=== PATIENT | female | born 1945 | race Caucasian/White ===

== ENCOUNTER 2022-07-18 10:53 | Inpatient (IN) | payer MEDICARE, SELFPAY ==
[2022-07-18 11:32] VITALS: BP 112/79; PULSE 96; RESP 16; TEMP 35.9; O2SAT 95
[2022-07-18 16:10] VITALS: BP 100/71; PULSE 98; RESP 18; TEMP 36.1; O2SAT 94
[2022-07-18 17:08] LABS: Basophils Absolute Auto 0.01 K/uL (0.00-0.30); Basophils Percent Auto 0.1 % (0.0-3.0); Hematocrit 45.7 % (33.0-51.0); Hemoglobin* 15.1 gm/dL (12.0-16.0); Immature Granulocytes Abs Auto 0.01 K/uL (0.00-0.30); Immature Granulocytes Pct Auto 0.1 %; Lymphocytes Percent Auto 9.4 % (20-44); Mean Corpuscular HGB Conc 33 gm/dL (32-36); Mean Corpuscular Hemoglobin 35 pg (26-34); Mean Corpuscular Volume 105 fL (80-100); Monocytes Percent Auto 6.9 % (0.0-11.0); Neutrophils Percent Auto 83.5 % (42.0-72.0); Platelet Count* 265 K/uL (140-440); RDW Coefficient of Variation % 12.2 % (11.5-15.5); Red Blood Count 4.37 m/uL (4.00-5.20); White Blood Count* 8.53 K/uL (4.50-11.00)
[2022-07-18 17:13] LABS: Appearance Urine Slightly Cloudy (Clear); Bilirubin Urine 3+ (Negative); Blood Urine 3+ (Negative); Color Urine Red (Yellow); Glucose Urine Negative (Negative); Ketones Urine 2+ (Negative); Leukocyte Esterase Urine Negative (Negative); Nitrite Urine Positive (Negative); Protein Urine 1+ (Negative); Specific Gravity Urine >= 1.030 (1.000-1.030); pH Urine 5.5 (5.0-8.5)
[2022-07-18 17:15] LABS: Slide Review Reflex No
[2022-07-18 17:22] LABS: Chloride* 101 mmol/L (96-114); Sodium* 139 mmol/L (135-149)
[2022-07-18 17:25] LABS: Amylase* 70 U/L (18-89); Creatinine* 0.5 mg/dL (0.5-1.5); Estimated Glomerular Filt Rate 98 ml/min
[2022-07-18 17:26] LABS: Albumin* 4.6 g/dL (3.3-5.0); Blood Urea Nitrogen* 12 mg/dL (7-30); Carbon Dioxide* 27 mmol/L (20-32); Glucose* 151 mg/dL (60-115)
--- NOTE | 2022-07-18 17:26 | ED.ABDPAIN ---
HPI - Abdominal Pain General Date Seen: 07/18/22 Chief Complaint: Abdominal Pain Stated Complaint: Abdominal pain, weakness Time Seen by Provider: 07/18/22 16:27 Source: patient and family Mode of arrival: ambulatory Limitations: no limitations History of Present Illness HPI narrative: 77-year-old female presents here for evaluation of abdominal pain which she has had since last night, she describes a throughout her entire abdomen, worse when she moves takes a deep breath in or lays on her side she also says it was bad when she was walking, she has been waiting in the emergency room for 6 hours, she has not eaten anything so can not tell me if eating makes it better or worse. She denies a fevers chills, she does have a remote history of constipation associated with this. But no real significant history of previous abdominal operations she tells me. She is not taking anything for the pain at all no Tylenol ibuprofen or anything else,. Denies a history of black stools blood in her stools vomiting up blood or any other issues associated with this accompanied here by her . She is in the [facility] system, we do not have any other information on her. She tells me she drinks approximately 10 glasses of wine per day, she has not drank since yesterday, this is been chronic according to her hu Pertinent past history: none Onset (ago): day(s) Pain Consistency: constant Location: diffuse, epigastric and periumbilical Severity: severe Quality: stabbing Radiation: none Migration to: no migration Exacerbating factors: movement Relieving factors: rest Associated symptoms: denies other symptoms Related Data Patient : No Home Medications Medication Instructions Recorded Confirmed Unobtainable 07/18/22 07/18/22 Allergies Allergy/AdvReac Type Severity Reaction Status Date / Time No Known Drug Allergies Allergy Verified 07/18/22 11:38 Review of Systems Status of ROS Reports: 10 or more systems reviewed and unremarkable except as noted in History and below PFSH PFS Social History Smoking Status: Never smoker Second hand tobacco smoke exposure: No How often do you have a drink containing alcohol: never How often do you have six or more drinks on one occasion: Never AUDIT-C Alcohol total score: 0 Non-prescribed substance use: denies use service: No Exam Narrative: Exam Narrative: Patient is seen in room 3 she is in no apparent distress, able to lay down for me sit up, she complains of pain throughout her abdomen, any sort of palpation list is pain but I am able to press this test scope down a little further, Pupils are equal round reactive to light there is no scleral icterus redness, she is very thin,, do not see any evidence of any paleness of her conjunctiva. Oropharynx is normal, her neck is supple, chest is clear bilaterally with no wheezing crackles noted heart sounds are normal no clicks murmurs or gallops her abdomen is as above. No organomegaly, no CVA tenderness, she moves all extremities independently and well. Const: Vital Signs, click to edit/add: Vital Signs - 24 hr 07/18/22 11:32 07/18/22 16:10 Temperature 96.7 F L 97 F L Pulse Rate [Pulse Oximeter] 96 98 Respiratory Rate 16 18 Blood Pressure [Ri ght Upper Arm] 112/79 100/71 Pulse Oximetry 95 94 Oxygen Delivery Me thod Room Air Room Air Documenting provider has reviewed patient's vital signs: yes Course Course Hospital Course: I spoke to the hospitalist in general surgery, with the diagnosis of small-bowel obstruction, I recommended admission which they are in agreement with, Vital Signs Vital signs: Initial Vital Signs Temperature 96.7 F L 07/18/22 11:32 Temperature Source Temporal Artery Scan 07/18/22 11:32 Pulse Rate 96 07/18/22 11:32 Pulse Rhythm 07/18/22 11:32 Respiratory Rate 16 07/18/22 11:32 Blood Pressure 112/79 07/18/22 11:32 Blood Pressure Mean 90 07/18/22 11:32 Blood Pressure Position Sitting 07/18/22 11:32 Pulse Oximetry 95 07/18/22 11:32 Oxygen Delivery Method 07/18/22 11:32 Vital Signs Temperature 96.7 F L 07/18/22 11:32 Pulse Rate 96 07/18/22 11:32 Respiratory Rate 16 07/18/22 11:32 Blood Pressure 112/79 07/18/22 11:32 Pulse Oximetry 95 07/18/22 11:32 Oxygen Delivery Method 07/18/22 11:32 Temperature 97 F L 07/18/22 16:10 Pulse Rate 98 07/18/22 16:10 Respiratory Rate 18 07/18/22 16:10 Blood Pressure 100/71 07/18/22 16:10 Pulse Oximetry 94 07/18/22 16:10 Oxygen Delivery Method 07/18/22 16:10 MDM - Abdominal Pain MDM Narrative Medical decision making narrative: During the evaluation of this patient I considered multiple differential diagnosis including life-threatening differentials which are appendicitis, aortic aneurysm, mesenteric ischemia, bowel perforation, ectopic , volvulus and bowel obstruction, other differential diagnosis include but are not limited to inflammatory bowel disease, cholecystitis, pancreatitis, hepatitis, gastritis, GERD, diverticulitis, peptic ulcer disease, pyelonephritis/UTI, renal colic/stone, pelvic inflammatory disease, cervicitis, endometritis, intrauterine , dysfunctional uterine bleeding, ovarian cyst/torsion, spontaneous as well as other etiologies Differential Diagnosis Differential diagnosis: Likely abdominal pain Medical Records Attestation: I reviewed the patient's medical records. Lab Data Attestation: I reviewed the patient's lab results. Labs: Lab Results 07/18/22 07/18/22 07/18/22 Range/Units 16:42 16:51 17:00 WBC 8.53 (4.50-11.00) K/uL RBC 4.37 (4.00-5.20) m/uL Hgb 15.1 (12.0-16.0) gm/dL Hct 45.7 (33.0-51.0) % MCV 105 H (80-100) fL MCH 35 H (26-34) pg MCHC 33 (32-36) gm/dL RDW Coeff of Ramon 12.2 (11.5-15.5) % Plt Count 265 (140-440) K/uL Neut % (Auto) 83.5 H (42.0-72.0) % Lymph % (Auto) 9.4 L (20-44) % Mccreary % (Auto) 6.9 (0.0-11.0) % Eos % (Auto) 0.0 (0.0-7.0) % Baso % (Auto) 0.1 (0.0-3.0) % Neut # (Auto) 7.10 H (1.7-7.0) K/uL Lymph # (Auto) 0.80 L (0.90-2.90) K/uL Mccreary # (Auto) 0.60 (0.00-0.90) K/UL Eos # (Auto) 0.00 (0.00-0.50) K/uL Baso # (Auto) 0.01 (0.00-0.30) K/uL Sodium (135-149) mmol/L Potassium (3.6-5.1) mmol/L Chloride (96-114) mmol/L Carbon Dioxide (20-32) mmol/L BUN (7-30) mg/dL Creatinine (0.5-1.5) mg/dL Estimated GFR ml/min Glucose (60-115) mg/dL Calcium (8.4-10.6) mg/dL Total Bilirubin (0.1-1.5) mg/dL Direct Bilirubin (0.0-0.5) mg/dL AST (12-35) U/L ALT (4-35) U/L Alkaline Phosphatase (40-150) U/L Troponin I (0.01-0.04) ng/mL C-Reactive Protein (0.5-1.0) mg/dL Total Protein (6.0-8.3) g/dL Albumin (3.3-5.0) g/dL Amylase (18-89) U/L Lipase (23-300) U/L Urine Color Red A (Yellow) Urine Appearance Slightly Cloudy A (Clear) Urine pH 5.5 (5.0-8.5) Ur Specific Felicity >= 1.030 (1.000-1.030) Urine Protein 1+ A (Negative) Urine Glucose (UA) Negative (Negative) Urine Ketones 2+ A (Negative) Urine Blood 3+ A (Negative) Urine Nitrite Positive A (Negative) Urine Bilirubin 3+ A (Negative) Urine Urobilinogen 1.0 (0.2-1.0) Ur Leukocyte Esterase Negative (Negative) Urine RBC 2-5 A (0-2) Urine WBC 2-5 (0-5) Ur Squamous Epith Cells Moderate A (None-Few) Urine Bacteria Few A (None) Fine Granular Casts Moderate A (None) Ethyl Alcohol (0.01-0.03) % SARS-CoV-2 (PCR) Negative SARS-CoV-2 (Negative) Influenza Type A (PCR) Negative PCR FLU A (Negative) Influenza Type B (PCR) Negative PCR FLU B (Negative) RSV (PCR) Negative PCR RSV (Negative) 07/18/22 07/18/22 07/18/22 Range/Units 17:00 17:00 17:00 WBC (4.50-11.00) K/uL RBC (4.00-5.20) m/uL Hgb (12.0-16.0) gm/dL Hct (33.0-51.0) % MCV (80-100) fL MCH (26-34) pg MCHC (32-36) gm/dL RDW Coeff of Ramon (11.5-15.5) % Plt Count (140-440) K/uL Neut % (Auto) (42.0-72.0) % Lymph % (Auto) (20-44) % Mccreary % (Auto) (0.0-11.0) % Eos % (Auto) (0.0-7.0) % Baso % (Auto) (0.0-3.0) % Neut # (Auto) (1.7-7.0) K/uL Lymph # (Auto) (0.90-2.90) K/uL Mccreary # (Auto) (0.00-0.90) K/UL Eos # (Auto) (0.00-0.50) K/uL Baso # (Auto) (0.00-0.30) K/uL Sodium 139 (135-149) mmol/L Potassium 4.0 (3.6-5.1) mmol/L Chloride 101 (96-114) mmol/L Carbon Dioxide 27 (20-32) mmol/L BUN 12 (7-30) mg/dL Creatinine 0.5 (0.5-1.5) mg/dL Estimated GFR 98 ml/min Glucose 151 H (60-115) mg/dL Calcium 10.0 (8.4-10.6) mg/dL Total Bilirubin 1.1 (0.1-1.5) mg/dL Direct Bilirubin 0.4 (0.0-0.5) mg/dL AST 32 (12-35) U/L ALT 20 (4-35) U/L Alkaline Phosphatase 106 (40-150) U/L Troponin I < 0.01 L (0.01-0.04) ng/mL C-Reactive Protein 0.8 (0.5-1.0) mg/dL Total Protein 7.9 (6.0-8.3) g/dL Albumin 4.6 (3.3-5.0) g/dL Amylase 70 (18-89) U/L Lipase 37 (23-300) U/L Urine Color (Yellow) Urine Appearance (Clear) Urine pH (5.0-8.5) Ur Specific Felicity (1.000-1.030) Urine Protein (Negative) Urine Glucose (UA) (Negative) Urine Ketones (Negative) Urine Blood (Negative) Urine Nitrite (Negative) Urine Bilirubin (Negative) Urine Urobilinogen (0.2-1.0) Ur Leukocyte Esterase (Negative) Urine RBC (0-2) Urine WBC (0-5) Ur Squamous Epith Cells (None-Few) Urine Bacteria (None) Fine Granular Casts (None) Ethyl Alcohol < 0.01 L (0.01-0.03) % SARS-CoV-2 (PCR) (Negative) Influenza Type A (PCR) (Negative) Influenza Type B (PCR) (Negative) RSV (PCR) (Negative) Imaging Data CT scan - abdomen: Attestation: I have reviewed the pertinent imaging results. My impression: small-bowel obstruction Radiologist's impression: Patient: ANGEL BEST Facility:?[facility] Patient ID:?[id number] Site Patient ID:?[id number]. Site :?[id number] Study:?CT Abdomen/Pelvis W/44CC ISOVUE 370-07/18/2022 6:32:58 PM Ordering Physician:Reanna Calixto Final Report: INDICATION: Abdominal pain. TECHNIQUE: CT abdomen and pelvis acquired with 44 cc Isovue 370 IV contrast. COMPARISON: None. FINDINGS: Lower chest: Unremarkable. Liver: Scattered hepatic cysts. Normal in size and attenuation. No suspicious masses. Gallbladder and bile ducts: Unremarkable. No stones or inflammation. No biliary dilatation. Pancreas: Unremarkable. No mass or inflammation. Spleen: Unremarkable. Normal in size. No masses. Adrenal glands: Unremarkable. No nodules. Kidneys: Unremarkable. No suspicious masses, stones, or hydronephrosis. GI tract: Numerous dilated loops of fluid-filled small bowel with small air-fluid levels in the central and left ladonna abdomen. There is a probable transition point within the upper pelvis centrally, best seen on series 2, image 93 and series 4 image 23. No free air. Colon is decompressed. Normal appendix. Small hiatal hernia. Vasculature: Normal caliber abdominal aorta with moderate atherosclerotic calcification. Mesenteric arteries are patent. Lymph nodes: No lymphadenopathy. Peritoneum/Abdominal Wall: Small amount of free fluid about the obstructed small bowel loops, particularly in the pelvis. Pelvis: Unremarkable. Bones: Unremarkable for age. IMPRESSION: Small-bowel obstruction with probable transition point within the upper central pelvis. Please note that all CT scans at this facility use dose modulation, iterative reconstruction, and/or weight-based dosing when appropriate to reduce radiation dose to as low as reasonably achievable. Dictated by Jasvir Newby MD @ 07/18/2022 6:54:39 PM (Electronic Signature) Discharge Plan Discharge Clinical Impression: Complete obstruction of small intestine, Abdominal pain Patient Disposition: Admitted As Inpatient Condition: Improved Prescriptions: No Action Unobtainable Follow Up/Referrals: Provider,Not a Local [Primary Care Provider] -
[2022-07-18 17:29] LABS: Alanine Aminotransferase* 20 U/L (4-35); Alkaline Phosphatase* 106 U/L (40-150); Aspartate Amino Transferase* 32 U/L (12-35); Bilirubin Direct* 0.4 mg/dL (0.0-0.5); Bilirubin Total* 1.1 mg/dL (0.1-1.5); C Reactive Protein* 0.8 mg/dL (0.5-1.0); Lipase* 37 U/L (23-300); Total Protein* 7.9 g/dL (6.0-8.3)
[2022-07-18 17:33] LABS: Ethanol* < 0.01 % (0.01-0.03)
[2022-07-18 17:41] LABS: Bacteria Urine Few; Fine Granular Casts Urine Moderate; Squamous Epithelial Cell Urine Moderate (None-Few)
[2022-07-18] MEDS: MORPHINE 2 MG/ML inj IVP (17:45)
[2022-07-18] MEDS: 0.9 % SODIUM CHLORIDE 1000 ml 1,000 ML IV ×2 (17:45→19:41)
[2022-07-18] MEDS: ONDANSETRON 2 MG/ML inj 4 MG IVP (17:45)
[2022-07-18 17:47] LABS: PCR FLU A Negative PCR FLU A (Negative); PCR FLU B Negative PCR FLU B (Negative); PCR RSV Negative PCR RSV (Negative)
[2022-07-18 17:52] LABS: Troponin I* < 0.01 ng/mL (0.01-0.04)
[2022-07-18 17:56] LABS: SARS PCR* Negative SARS-CoV-2 (Negative)
--- NOTE | 2022-07-18 18:00 | CRLHL7_ITS ---
For Patients: As a result of the Century Cures Act, medical imaging exams and procedure reports are released immediately into your electronic medical record. You may view this report before your referring provider. If you have questions, please contact your health care provider. INDICATION: Abdominal pain. TECHNIQUE: CT abdomen and pelvis acquired with 44 cc Isovue 370 IV contrast. COMPARISON: None. FINDINGS: Lower chest: Unremarkable. Liver: Scattered hepatic cysts. Normal in size and attenuation. No suspicious masses. Gallbladder and bile ducts: Unremarkable. No stones or inflammation. No biliary dilatation. Pancreas: Unremarkable. No mass or inflammation. Spleen: Unremarkable. Normal in size. No masses. Adrenal glands: Unremarkable. No nodules. Kidneys: Unremarkable. No suspicious masses, stones, or hydronephrosis. GI tract: Numerous dilated loops of fluid-filled small bowel with small air-fluid levels in the central and left ladonna abdomen. There is a probable transition point within the upper pelvis centrally, best seen on series 2, image 93 and series 4 image 23. No free air. Colon is decompressed. Normal appendix. Small hiatal hernia. Vasculature: Normal caliber abdominal aorta with moderate atherosclerotic calcification. Mesenteric arteries are patent. Lymph nodes: No lymphadenopathy. Peritoneum/Abdominal Wall: Small amount of free fluid about the obstructed small bowel loops, particularly in the pelvis. Pelvis: Unremarkable. Bones: Unremarkable for age. IMPRESSION: Small-bowel obstruction with probable transition point within the upper central pelvis. Please note that all CT scans at this facility use dose modulation, iterative reconstruction, and/or weight-based dosing when appropriate to reduce radiation dose to as low as reasonably achievable. Dictated by Jasvir Newby MD @ 07/18/2022 6:54:39 PM (Electronically Signed)
--- NOTE | 2022-07-18 20:48 | P.IMHP_ITS ---
Hospitalist- H&P: HPI History of Present Illness Date Seen: 07/20/22 Chief complaint: Abdominal pain, weakness Narrative: Lianna Bear is a 77 year old female with past medical history of HTn, HLD, Depression presenting for evaluation of abdominal pain. The patient has had intermittent abdominal pain since Sunday. Her abdominal pain is crampy and has been increasing in intensity. Associated symptoms include nausea and vomiting. She denies chest pain, sob, fever. She presented to the ED where CT AP showed SBO with probable transition point within the upper central pelvis. Her case was discussed with general surgery. She was given antiemetics, IVF, morphine and admitted for further evaluation. Of note the patient drinks 8-10 glasses wine daily, she states because she gets bored being at home. Denies hx of alcohol withdrawal. CT AP IMPRESSION: Small-bowel obstruction with probable transition point within the upper central pelvis 05/04/2010 Vitamin D deficiency 05/03/2010 Hyperlipemia Date Unknown H/O: hysterectomy Date Unknown Other and unspecified hyperlipidemia 1970s Pneumonia, organism unspecified(486) Date Unknown SCREENING MALIGNANT NEOPLASMS COLON Date Unknown Tobacco use disorder Surgical History? 2 items 1994 Uche and bso Date Unknown Tonsil and adenoidectomy Tobacco History? 5 items Smoking Status Every Day Types Cigarettes Amount 1 pack/day for 14.50 years; Pack years: 14.50 Smokeless Tobacco Status Never Comment Previously quit for 13 years. Smoked .25ppd x 14 yrs, .5ppd x 22yrs = 14.5 Vaping/E-Liquid Use Questions Responses Vaping/E-Liquid Use Never User Counseling Given? Yes Review of Systems Status of ROS: Reports: 10 or more systems reviewed and unremarkable except as noted in History and below PFSH PFSH Medical History (Updated 07/19/22 @ 10:32 by Dary Daley MD) Alcohol abuse Depression HLD (hyperlipidemia) Hypertension Tobacco abuse disorder Surgical History (Updated 07/19/22 @ 09:43 by Nolvia Sutton MD) S/P tonsillectomy and adenoidectomy S/P vaginal hysterectomy Social History Highest level of school completed/degree received: high school graduate Smoking Status: Current every day smoker What tobacco products do you use: cigarettes Smoking packs per day: 1 Smoking cigarettes per day: 20.0 Do you use any of these nicotine containing products: None How often do you have a drink containing alcohol: 4 or more times a week Alcohol type: wine How many standard drinks containing alcohol do you have on a typical day: 7 to 9 How often do you have six or more drinks on one occasion: Daily or almost daily AUDIT-C Alcohol total score: 11 Non-prescribed substance use: denies use Caffeine: Yes service: No Meds Home Medications and Allergies Home Medications Medication Instructions Recorded Confirmed Type albuterol sulfate 90 mcg/actuation 2 inh inhalation Q4H PRN 07/19/22 07/19/22 History aerosol inhaler alendronate 70 mg tablet 70 mg PO Q7D 07/19/22 07/19/22 History ascorbic acid (vitamin C) 1,000 mg 1 g PO DAILY 07/19/22 07/19/22 History tablet (Vitamin C) atorvastatin 10 mg tablet 10 mg PO HS 07/19/22 07/19/22 History cyanocobalamin (vitamin B-12) 1,000 mcg PO DAILY 07/19/22 07/19/22 History 1,000 mcg tablet (Vitamin B-12) escitalopram oxalate 5 mg tablet 5 mg PO DAILY 07/19/22 07/19/22 History folic acid 1 mg tablet 1 mg PO DAILY 07/19/22 07/19/22 History lisinopril 5 mg tablet 5 mg PO HS 07/19/22 07/19/22 History Allergies Allergy/AdvReac Type Severity Reaction Status Date / Time No Known Drug Allergies Allergy Verified 07/18/22 11:38 Exam Narrative: Exam Narrative: Gen: no acute distress HEENT: NCAT EOMI mmm Neck: Supple CV: RRR normal s1 s2 Lungs: CTAB Abd: Soft,nt, nd; hypoactive bowel sounds Neuro: Alert, oriented, CN grossly intact; nonfocal screening?exam Psych: appropriate affect MSK: age appropriate muscle mass Skin; Warm, dry no rash on face Const: Vital Signs, click to edit/add: Vital Signs - 24 hr 07/18/22 11:32 07/18/22 16:10 Temperature 96.7 F L 97 F L Pulse Rate [Pulse Oximeter] 96 98 Respiratory Rate 16 18 Blood Pressure [Ri ght Upper Arm] 112/79 100/71 Pulse Oximetry 95 94 Oxygen Delivery Me thod Room Air Room Air Hospitalist - H&P: Result Labs Labs: Short CBC 07/18/22 Range/Units 17:00 WBC 8.53 (4.50-11.00) K/uL Hgb 15.1 (12.0-16.0) gm/dL Hct 45.7 (33.0-51.0) % Plt Count 265 (140-440) K/uL BMP 07/18/22 17:00 Sodium 139 Potassium 4.0 Chloride 101 Carbon Dioxide 27 BUN 12 Creatinine 0.5 Glucose 151 H Calcium 10.0 Cardiac Enzymes 07/18/22 Range/Units 17:00 Troponin I < 0.01 L (0.01-0.04) ng/mL Liver Function 07/18/22 Range/Units 17:00 Total Bilirubin 1.1 (0.1-1.5) mg/dL Direct Bilirubin 0.4 (0.0-0.5) mg/dL AST 32 (12-35) U/L ALT 20 (4-35) U/L Alkaline Phosphatase 106 (40-150) U/L Albumin 4.6 (3.3-5.0) g/dL Urine 07/18/22 Range/Units 16:51 Urine Color Red A (Yellow) Urine Appearance Slightly Cloudy A (Clear) Urine pH 5.5 (5.0-8.5) Ur Specific Marilla >= 1.030 (1.000-1.030) Urine Protein 1+ A (Negative) Urine Glucose (UA) Negative (Negative) Assessment and Plan Assessment and plan (1) Complete obstruction of small intestine: Problem comment: - appreciate input from General surgery, Gastrograffin today with repeat imaging in the morning - no NG required at this time, consider placement pending clinical course Status: Acute (2) Hypertension: Status: Acute (3) HLD (hyperlipidemia): Status: Acute (4) Depression: Status: Acute (5) Tobacco abuse disorder: Problem comment: - on nicotine patch Status: Acute (6) UTI (urinary tract infection): Problem comment: - concerning UA on admission, culture pending. On IV Rocephin (07/18) Status: Acute Plan Assessment: Lianna Bear is a 77 year old female with past medical history of HTn, HLD, Depression presenting for evaluation of abdominal pain. She presented to the ED where CT AP showed SBO with probable transition point within the upper central pelvis. Her case was discussed with general surgery. She was given antiemetics, IVF, morphine and admitted for further evaluation. Of note the patient drinks 8-10 glasses wine daily, she states because she gets bored being at home. Denies hx of alcohol withdrawal. 1. SBO; hx of TAHBSO 2. Hx of HTN 3. Hx of HLD 4. Hx of Depression 5. Hx of tobacco use disorder and likely undiagnosed COPD 6. Hx of Alcoholism 7. Rule out UTI Plan -admit to inpatient -NPO -IVF -antiemetics -PPI -pain control -Gen Surg Consult -NG tube if recurrent emesis -monitor s/s of alcohol withdrawal -nicotine patch -cessation counseling -f/u Ucx Code-Full DVt ppx-SCD Dispo-anticipated dc home 3-4 days
[2022-07-18] MEDS: PANTOPRAZOLE SODIUM 40 MG INJ IVP (21:05)
[2022-07-18] MEDS: 5 % DEXTROSE/0.9% SOD CHLORIDE 1,000 ML 75 ML IV (21:06)
[2022-07-18 21:42] VITALS: BP 129/72; PULSE 96; RESP 18; TEMP 36.6; O2SAT 98
[2022-07-18] MEDS: cefTRIAXone 1 GM in 0.9 % SODIUM CHLORIDE Mini-bag 100 ML IVPB (21:59)
[2022-07-18] MEDS: HYDROmorphone 0.5 mg/0.5 ml inj IVP (22:00)
[2022-07-18] MEDS: SODIUM CHLORIDE 0.9 % (FLUSH) 10 ML SYRINGE 5 ML IVF (22:00)
[2022-07-18 23:00] VITALS: BP 99/65; PULSE 84; RESP 14; TEMP 36.4; O2SAT 95
--- NOTE | 2022-07-18 23:44 | PC.NURSE ---
Patient admitted to 278. Afebrile. Rating pain in abdomen 3-4/10 and PRN Dilaudid given x1. Up to bathroom with 1 assist.
[2022-07-19] VITALS (10 sets, daily range): BP systolic 71–112; BP diastolic 52–67; PULSE 83–105; RESP 14–20; TEMP 36.5–36.8; O2SAT 90–99; BMI 17.9
[2022-07-19] MEDS: HYDROmorphone 0.5 mg/0.5 ml inj IVP ×4 (05:40→18:31)
--- NOTE | 2022-07-19 06:12 | PC.NURSE ---
Addendum entered by Lulu Stephens 07/19/22 06:16: Pt is NPO not regular diet. Original Note: Pt alert and oriented x3. Afebrile. Pt has hypoactive bowel sounds in all 4 quadrants. Pt reports 6/10?pain in abdomen, pain managed with PRN medication. Pt denies chest pain, SOB, and N/V.?Pt is up with SBA with gait belt and pt uses IV pole for support. Placed walker in room. Tolerating regular diet. No BM during shift.
[2022-07-19 07:24] LABS: Basophils Absolute Auto 0.01 K/uL (0.00-0.30); Basophils Percent Auto 0.2 % (0.0-3.0); Eosinophils Absolute Auto 0.05 K/uL (0.00-0.50); Eosinophils Percent Auto 0.9 % (0.0-7.0); Hematocrit 37.2 % (33.0-51.0); Hemoglobin* 12.1 gm/dL (12.0-16.0); Lymphocytes Percent Auto 14.5 % (20-44); Mean Corpuscular HGB Conc 33 gm/dL (32-36); Mean Corpuscular Hemoglobin 35 pg (26-34); Mean Corpuscular Volume 107 fL (80-100); Monocytes Percent Auto 13.2 % (0.0-11.0); Neutrophils Absolute Auto 3.99 K/uL (1.7-7.0); Neutrophils Percent Auto 71.2 % (42.0-72.0); Platelet Count* 183 K/uL (140-440); RDW Coefficient of Variation % 12.5 % (11.5-15.5); Red Blood Count 3.47 m/uL (4.00-5.20)
--- NOTE | 2022-07-19 07:29 | PM.GSCN ---
History of Present Illness Consult details Date Seen: 07/19/22 Consult date: 07/19/22 Narrative: The patient is a 77 year-old female who presented to the ER with 1 day of abdominal pain, nausea and vomiting. She states that before bed on Sunday (2 days ago), she developed these symptoms. The symptoms persisted so she came to the ED. She describes the pain as crampy. She has not had chest pain, SOB, fever. Last BM was last evening in the ER but was small. Is no longer nauseated and pain is markedly improved. She is not passing flatus. She thinks she may have had something like this before but is not sure what was done about it. She has had a vaginal hysterectomy but no other surgeries on the abdomen or pelvis. She drinks one box of wine each day. She has not been drinking since she had this pain. She has never had withdrawal symptoms. She would like some coffee or water this AM. She states she has had a colonoscopy 15 years ago. Review of Systems Status of ROS: Reports: 10 or more systems reviewed and unremarkable except as noted in History and below PFSH PFS Medical History (Updated 07/19/22 @ 09:43 by Nolvia Sutton MD) Alcohol abuse Depression HLD (hyperlipidemia) Hypertension Tobacco abuse disorder Surgical History (Updated 07/19/22 @ 09:43 by Nolvia Sutton MD) S/P tonsillectomy and adenoidectomy S/P vaginal hysterectomy Social History Highest level of school completed/degree received: high school graduate Smoking Status: Current every day smoker What tobacco products do you use: cigarettes Smoking packs per day: 1 Smoking cigarettes per day: 20.0 Do you use any of these nicotine containing products: None How often do you have a drink containing alcohol: 4 or more times a week Alcohol type: wine How many standard drinks containing alcohol do you have on a typical day: 7 to 9 How often do you have six or more drinks on one occasion: Daily or almost daily AUDIT-C Alcohol total score: 11 Non-prescribed substance use: denies use Caffeine: Yes service: No Meds Home Medications and Allergies Home Medications Medication Instructions Recorded Confirmed Type albuterol sulfate 90 mcg/actuation 2 inh inhalation Q4H PRN 07/19/22 07/19/22 History aerosol inhaler alendronate 70 mg tablet 70 mg PO Q7D 07/19/22 07/19/22 History ascorbic acid (vitamin C) 1,000 mg 1 g PO DAILY 07/19/22 07/19/22 History tablet (Vitamin C) atorvastatin 10 mg tablet 10 mg PO HS 07/19/22 07/19/22 History cyanocobalamin (vitamin B-12) 1,000 mcg PO DAILY 07/19/22 07/19/22 History 1,000 mcg tablet (Vitamin B-12) escitalopram oxalate 5 mg tablet 5 mg PO DAILY 07/19/22 07/19/22 History folic acid 1 mg tablet 1 mg PO DAILY 07/19/22 07/19/22 History lisinopril 5 mg tablet 5 mg PO HS 07/19/22 07/19/22 History Allergies Allergy/AdvReac Type Severity Reaction Status Date / Time No Known Drug Allergies Allergy Verified 07/18/22 11:38 Exam Narrative: Exam Narrative: General appearance: Alert, cooperative, and in no distress Eyes: PERRLA, eye lids clear, and sclera white HENT Head: Normocephalic Pulmonary: Breathing nonlabored on room air Cardiovascular Heart: Regular rate Gastrointestinal Abdominal: Non-distended. no scars. no hernias. Mildly tender to palpation on the right just below the umbilicus. No guarding or rebound. No bowel sounds auscultated. Musculoskeletal: Extremities: Upper: Both upper extremities have normal joint range of motion and intact strength. Lower: Both lower extremities have normal joint range of motion and intact strength. Skin: Normal skin color, texture, and turgor. No rashes or lesions. Neurologic: No focal deficits Psychiatric: Alert, oriented, cooperative, normal affect. Const: Vital Signs, click to edit/add: Vital Signs - 24 hr 07/18/22 11:32 07/18/22 16:10 07/18/22 21:42 Temperature 96.7 F L 97 F L 97.8 F Pulse Rate [Left P ulse Oximeter] 96 Pulse Rate [Pulse Oximeter] 96 98 Respiratory Rate 16 18 18 Blood Pressure [Le ft Arm] 129/72 Blood Pressure [Ri ght Upper Arm] 112/79 100/71 Pulse Oximetry 95 94 98 Oxygen Delivery Me thod Room Air Room Air Room Air 07/18/22 21:42 07/18/22 23:00 07/18/22 23:00 Temperature 97.6 F Pulse Rate [Left P ulse Oximeter] 84 Pulse Rate [Pulse Oximeter] Respiratory Rate 18 14 14 Blood Pressure [Le ft Arm] 99/65 Blood Pressure [Ri ght Upper Arm] Pulse Oximetry 98 95 Oxygen Delivery Me thod Room Air Room Air 07/19/22 03:00 Temperature 97.7 F Pulse Rate [Left P ulse Oximeter] 86 Pulse Rate [Pulse Oximeter] Respiratory Rate 14 Blood Pressure [Le ft Arm] 99/63 Blood Pressure [Ri ght Upper Arm] Pulse Oximetry 99 Oxygen Delivery Me thod Room Air Results Labs Labs: Abnormal lab results 07/18/22 07/18/22 07/18/22 Range/Units 16:51 17:00 17:00 MCV 105 H (80-100) fL MCH 35 H (26-34) pg Neut % (Auto) 83.5 H (42.0-72.0) % Lymph % (Auto) 9.4 L (20-44) % Neut # (Auto) 7.10 H (1.7-7.0) K/uL Lymph # (Auto) 0.80 L (0.90-2.90) K/uL Glucose 151 H (60-115) mg/dL Troponin I (0.01-0.04) ng/mL Urine Color Red A (Yellow) Urine Appearance Slightly Cloudy A (Clear) Urine Protein 1+ A (Negative) Urine Ketones 2+ A (Negative) Urine Blood 3+ A (Negative) Urine Nitrite Positive A (Negative) Urine Bilirubin 3+ A (Negative) Urine RBC 2-5 A (0-2) Ur Squamous Epith Cells Moderate A (None-Few) Urine Bacteria Few A (None) Fine Granular Casts Moderate A (None) Ethyl Alcohol < 0.01 L (0.01-0.03) % 07/18/22 Range/Units 17:00 MCV (80-100) fL MCH (26-34) pg Neut % (Auto) (42.0-72.0) % Lymph % (Auto) (20-44) % Neut # (Auto) (1.7-7.0) K/uL Lymph # (Auto) (0.90-2.90) K/uL Glucose (60-115) mg/dL Troponin I < 0.01 L (0.01-0.04) ng/mL Urine Color (Yellow) Urine Appearance (Clear) Urine Protein (Negative) Urine Ketones (Negative) Urine Blood (Negative) Urine Nitrite (Negative) Urine Bilirubin (Negative) Urine RBC (0-2) Ur Squamous Epith Cells (None-Few) Urine Bacteria (None) Fine Granular Casts (None) Ethyl Alcohol (0.01-0.03) % Diabetes panel 07/18/22 07/18/22 Range/Units 17:00 17:00 Sodium 139 (135-149) mmol/L Potassium 4.0 (3.6-5.1) mmol/L Chloride 101 (96-114) mmol/L Carbon Dioxide 27 (20-32) mmol/L BUN 12 (7-30) mg/dL Creatinine 0.5 (0.5-1.5) mg/dL Glucose 151 H (60-115) mg/dL Calcium 10.0 (8.4-10.6) mg/dL AST 32 (12-35) U/L ALT 20 (4-35) U/L Alkaline Phosphatase 106 (40-150) U/L Total Protein 7.9 (6.0-8.3) g/dL Albumin 4.6 (3.3-5.0) g/dL Calcium panel 07/18/22 07/18/22 Range/Units 17:00 17:00 Calcium 10.0 (8.4-10.6) mg/dL Albumin 4.6 (3.3-5.0) g/dL Pituitary panel 07/18/22 Range/Units 17:00 Sodium 139 (135-149) mmol/L Potassium 4.0 (3.6-5.1) mmol/L Chloride 101 (96-114) mmol/L Carbon Dioxide 27 (20-32) mmol/L BUN 12 (7-30) mg/dL Creatinine 0.5 (0.5-1.5) mg/dL Glucose 151 H (60-115) mg/dL Calcium 10.0 (8.4-10.6) mg/dL Adrenal panel 07/18/22 07/18/22 Range/Units 17:00 17:00 Sodium 139 (135-149) mmol/L Potassium 4.0 (3.6-5.1) mmol/L Chloride 101 (96-114) mmol/L Carbon Dioxide 27 (20-32) mmol/L BUN 12 (7-30) mg/dL Creatinine 0.5 (0.5-1.5) mg/dL Glucose 151 H (60-115) mg/dL Calcium 10.0 (8.4-10.6) mg/dL Total Bilirubin 1.1 (0.1-1.5) mg/dL AST 32 (12-35) U/L ALT 20 (4-35) U/L Alkaline Phosphatase 106 (40-150) U/L Total Protein 7.9 (6.0-8.3) g/dL Albumin 4.6 (3.3-5.0) g/dL All other labs normal. Imaging Abdomen CT scan report/results: report reviewed and image reviewed Additional studies: INDICATION: Abdominal pain. TECHNIQUE: CT abdomen and pelvis acquired with 44 cc Isovue 370 IV contrast. COMPARISON: None. FINDINGS: Lower chest: Unremarkable. Liver: Scattered hepatic cysts. Normal in size and attenuation. No suspicious masses. Gallbladder and bile ducts: Unremarkable. No stones or inflammation. No biliary dilatation. Pancreas: Unremarkable. No mass or inflammation. Spleen: Unremarkable. Normal in size. No masses. Adrenal glands: Unremarkable. No nodules. Kidneys: Unremarkable. No suspicious masses, stones, or hydronephrosis. GI tract: Numerous dilated loops of fluid-filled small bowel with small air-fluid levels in the central and left ladonna abdomen. There is a probable transition point within the upper pelvis centrally, best seen on series 2, image 93 and series 4 image 23. No free air. Colon is decompressed. Normal appendix. Small hiatal hernia. Vasculature: Normal caliber abdominal aorta with moderate atherosclerotic calcification. Mesenteric arteries are patent. Lymph nodes: No lymphadenopathy. Peritoneum/Abdominal Wall: Small amount of free fluid about the obstructed small bowel loops, particularly in the pelvis. Pelvis: Unremarkable. Bones: Unremarkable for age. IMPRESSION: Small-bowel obstruction with probable transition point within the upper central pelvis. Assessment and Plan Assessment and plan (1) Tobacco abuse disorder: Status: Acute (2) Complete obstruction of small intestine: Status: Acute (3) Alcohol abuse: Status: Acute Plan The patient is a 77 year old female with likely Small bowel obstruction. We discussed bowel obstructions and how they form and are managed.She has had a vaginal hysterectomy which certainly could cause adhesions in the abdomen. She is non-toxic and feeling better today so I recommend a gastrograffin challenge. I encouraged her to drink it slowly so that she doesn't get too nauseated. We will wait for return of bowel function and/or repeat an abdominal x-ray in the morning. I explained that if she develops worsening symptoms then we may need to proceed to the OR urgently. She is agreeable with this plan.
[2022-07-19 07:36] LABS: Slide Review Reflex Yes
[2022-07-19 07:46] LABS: Chloride* 113 mmol/L (96-114); Sodium* 140 mmol/L (135-149)
[2022-07-19 07:47] LABS: Potassium* 3.7 mmol/L (3.6-5.1)
[2022-07-19 07:49] LABS: Creatinine* 0.4 mg/dL (0.5-1.5); Est. Creatinine Clearance* 32.57; Estimated Glomerular Filt Rate 103 ml/min
[2022-07-19 07:50] LABS: Blood Urea Nitrogen* 9 mg/dL (7-30); Calcium* 8.2 mg/dL (8.4-10.6); Carbon Dioxide* 24 mmol/L (20-32); Glucose* 137 mg/dL (60-115)
[2022-07-19 07:54] LABS: Slide Review Acceptable Review (Acceptable)
[2022-07-19] MEDS: SODIUM CHLORIDE 0.9 % (FLUSH) 10 ML SYRINGE 5 ML IVF (08:41)
[2022-07-19] MEDS: PANTOPRAZOLE SODIUM 40 MG INJ IVP (08:41)
[2022-07-19] MEDS: 5 % DEXTROSE/0.9% SOD CHLORIDE 1,000 ML 75 ML IV ×2 (09:47→23:54)
[2022-07-19] MEDS: THIAMINE 100 MG TABLET PO (09:47)
--- NOTE | 2022-07-19 10:15 | CRLHL7_ITS ---
For Patients: As a result of the Cures Act, medical imaging exams and procedure reports are released immediately into your electronic medical record. You may view this report before your referring provider. If you have questions, please contact your health care provider. Indication: Recent fall, dizziness Technique: Volumetric multidetector CT images of the head were obtained without the administration of low osmolar intravenous contrast. Comparison: None available Findings: There is no intra-axial or extra-axial fluid collection. There is no mass effect or midline shift. There is age-related cortical atrophy with mild sulcal widening and ex vacuo dilatation of the lateral ventricles. There are chronic small vessel disease changes in the subcortical and periventricular white matter without lost [place]-white differentiation. The orbits and their contents are grossly within normal limits. The bony calvarium is grossly intact. The paranasal sinuses are clear. The mastoid air cells are well aerated. Impression: 1. Age-related changes of the brain without acute intracranial abnormality. Please note that all CT scans at this facility use dose modulation, iterative reconstruction, and/or weight-based dosing when appropriate to reduce radiation dose to as low as reasonably achievable. Dictated by Rojas Smith MD @ 07/19/2022 11:30:39 AM (Electronically Signed)
--- NOTE | 2022-07-19 10:15 | PM.IMPN1 ---
Progress Note: A&P Assessment and plan (1) Complete obstruction of small intestine: Problem details: - appreciate input from General surgery, Gastrograffin today with repeat imaging in the morning - no NG required at this time, consider placement pending clinical course Status: Acute (2) Hypotension: Problem details: - likely worsened during hospital stay, as patient is not actively drinking alcohol - holding home lisinopril, orthostatics ordered - no evidence of sepsis, on IV Rocephin for UTI, WBC reassuring and afebrile Status: Acute (3) UTI (urinary tract infection): Problem details: - concerning UA on admission, culture pending. On IV Rocephin (07/18) Status: Acute (4) Fall: Problem details: - patient fell on 06/30, fell again on 07/11 and hit head twice. It is unclear if she lost consciousness with either these episodes. She and states that she is scheduled for a head ?ultrasound? tomorrow at the hospital; our team has not found any evidence of an appointment tomorrow for imaging - given recurrent falls, alcohol abuse, dizziness, and hypotension, will obtain head CT today - therapies have been ordered for evaluation Status: Acute (5) Tobacco abuse disorder: Problem details: - on nicotine patch Status: Acute (6) Alcohol abuse: Problem details: - with evidence of macrocytosis on labs - supplement B12/Folate - no history of withdrawal, per patient and . BERNARDWA ordered Status: Acute Plan - per above - follow urine culture results - SCDs and ambulation for prophylaxis; initiate Lovenox if extended stay, pending CT head results Subjective Date Seen: 07/19/22 Interval history: Lianna is a very pleasant 77-year-old female who was admitted to the hospital yesterday for an SBO. No acute events overnight. She was seen by Dr. Sutton of general surgery this morning. Patient and her both are concerned about Lianna's intermittent dizziness, present since late June. She has had 2 falls at home since June 30, hit her head with both injuries. She and states the PCP has ordered imaging to be done here at the hospital tomorrow; we have not been able to find evidence of any appointments. Exam Narrative: Exam Narrative: GEN: Alert and answering questions appropriately HEENT: PERRL and EOMIs bilaterally, no scleral icterus, tongue protrudes midline CV: RRR, No concerning murmurs, rubs, or gallops, no carotid bruits R: LCTA bilaterally without concerning wheezing Ab: Soft, moderate discomfort with palpation, no concerning distension or masses Ext: wwp, no concerning edema Skin: No concerning skin lesions or rashes on exposed skin Neuro: No resting tremor, no focal deficits Psych: Intermittently perseverates on her dizziness, redirectable Const: Vital Signs, click to edit/add: Vital Signs - 24 hr 07/18/22 11:32 07/18/22 16:10 07/18/22 21:42 Temperature 96.7 F L 97 F L 97.8 F Pulse Rate [Left P ulse Oximeter] 96 Pulse Rate [Pulse Oximeter] 96 98 Respiratory Rate 16 18 18 Blood Pressure [Le ft Arm] 129/72 Blood Pressure [Ri ght Upper Arm] 112/79 100/71 Pulse Oximetry 95 94 98 Oxygen Delivery Or thod Room Air Room Air Room Air 07/18/22 21:42 07/18/22 23:00 07/18/22 23:00 Temperature 97.6 F Pulse Rate [Left P ulse Oximeter] 84 Pulse Rate [Pulse Oximeter] Respiratory Rate 18 14 14 Blood Pressure [Le ft Arm] 99/65 Blood Pressure [Ri ght Upper Arm] Pulse Oximetry 98 95 Oxygen Delivery Or thod Room Air Room Air 07/19/22 03:00 07/19/22 08:03 07/19/22 08:05 Temperature 97.7 F 98.0 F Pulse Rate [Left P ulse Oximeter] 86 83 83 Pulse Rate [Pulse Oximeter] Respiratory Rate 14 16 16 Blood Pressure [Le ft Arm] 99/63 103/63 Blood Pressure [Ri ght Upper Arm] Pulse Oximetry 99 95 Oxygen Delivery Or thod Room Air Room Air Labs Labs: Laboratory Results - last 24 hr 07/18/22 07/18/22 07/18/22 16:42 16:51 17:00 WBC 8.53 RBC 4.37 Hgb 15.1 Hct 45.7 MCV 105 H MCH 35 H MCHC 33 RDW Coeff of Ramon 12.2 Plt Count 265 Neut % (Auto) 83.5 H Lymph % (Auto) 9.4 L [place] % (Auto) 6.9 Eos % (Auto) 0.0 Baso % (Auto) 0.1 Neut # (Auto) 7.10 H Lymph # (Auto) 0.80 L [place] # (Auto) 0.60 Eos # (Auto) 0.00 Baso # (Auto) 0.01 Diff Slide Review Sodium Potassium Chloride Carbon Dioxide BUN Creatinine Estimated Creat Clear Estimated GFR Glucose Calcium Total Bilirubin Direct Bilirubin AST ALT Alkaline Phosphatase Troponin I C-Reactive Protein Total Protein Albumin Amylase Lipase Urine Color Red A Urine Appearance Slightly Cloudy A Urine pH 5.5 Ur Specific [place] >= 1.030 Urine Protein 1+ A Urine Glucose (UA) Negative Urine Ketones 2+ A Urine Blood 3+ A Urine Nitrite Positive A Urine Bilirubin 3+ A Urine Urobilinogen 1.0 Ur Leukocyte Esterase Negative Urine RBC 2-5 A Urine WBC 2-5 Ur Squamous Epith Cells Moderate A Urine Bacteria Few A Fine Granular Casts Moderate A Ethyl Alcohol SARS-CoV-2 (PCR) Negative SARS-CoV-2 Influenza Type A (PCR) Negative PCR FLU A Influenza Type B (PCR) Negative PCR FLU B RSV (PCR) Negative PCR RSV 07/18/22 07/18/22 07/18/22 17:00 17:00 17:00 WBC RBC Hgb Hct MCV MCH MCHC RDW Coeff of Ramon Plt Count Neut % (Auto) Lymph % (Auto) [place] % (Auto) Eos % (Auto) Baso % (Auto) Neut # (Auto) Lymph # (Auto) [place] # (Auto) Eos # (Auto) Baso # (Auto) Diff Slide Review Sodium 139 Potassium 4.0 Chloride 101 Carbon Dioxide 27 BUN 12 Creatinine 0.5 Estimated Creat Clear Estimated GFR 98 Glucose 151 H Calcium 10.0 Total Bilirubin 1.1 Direct Bilirubin 0.4 AST 32 ALT 20 Alkaline Phosphatase 106 Troponin I < 0.01 L C-Reactive Protein 0.8 Total Protein 7.9 Albumin 4.6 Amylase 70 Lipase 37 Urine Color Urine Appearance Urine pH Ur Specific [place] Urine Protein Urine Glucose (UA) Urine Ketones Urine Blood Urine Nitrite Urine Bilirubin Urine Urobilinogen Ur Leukocyte Esterase Urine RBC Urine WBC Ur Squamous Epith Cells Urine Bacteria Fine Granular Casts Ethyl Alcohol < 0.01 L SARS-CoV-2 (PCR) Influenza Type A (PCR) Influenza Type B (PCR) RSV (PCR) 07/19/22 07/19/22 06:40 06:40 WBC 5.60 RBC 3.47 L Hgb 12.1 Hct 37.2 MCV 107 H MCH 35 H MCHC 33 RDW Coeff of Ramon 12.5 Plt Count 183 Neut % (Auto) 71.2 Lymph % (Auto) 14.5 L [place] % (Auto) 13.2 H Eos % (Auto) 0.9 Baso % (Auto) 0.2 Neut # (Auto) 3.99 Lymph # (Auto) 0.80 L [place] # (Auto) 0.70 Eos # (Auto) 0.05 Baso # (Auto) 0.01 Diff Slide Review Acceptable Review Sodium 140 Potassium 3.7 Chloride 113 Carbon Dioxide 24 BUN 9 Creatinine 0.4 L Estimated Creat Clear 32.57 Estimated GFR 103 Glucose 137 H Calcium 8.2 L Total Bilirubin Direct Bilirubin AST ALT Alkaline Phosphatase Troponin I C-Reactive Protein Total Protein Albumin Amylase Lipase Urine Color Urine Appearance Urine pH Ur Specific [place] Urine Protein Urine Glucose (UA) Urine Ketones Urine Blood Urine Nitrite Urine Bilirubin Urine Urobilinogen Ur Leukocyte Esterase Urine RBC Urine WBC Ur Squamous Epith Cells Urine Bacteria Fine Granular Casts Ethyl Alcohol SARS-CoV-2 (PCR) Influenza Type A (PCR) Influenza Type B (PCR) RSV (PCR)
--- NOTE | 2022-07-19 18:18 | PC.NURSE ---
End of shift. Pt alert and oriented x4. Afebrile. Pt has hypoactive bowel sounds in all 4 quadrants. no gas Pt reports 0-6/10?pain in abdomen, pain managed with PRN medication. Pt denies chest pain, SOB, and N/V. she gets very lightheased and dizzy when up. Ortho BP where done and MD was updated. ?Pt is up with SBA with gait belt. she uses IV pole for support. No BM during shift. ?she is on sips and chips no water mug
[2022-07-19] MEDS: cefTRIAXone 1 GM in 0.9 % SODIUM CHLORIDE Mini-bag 100 ML IVPB (21:24)
[2022-07-19] MEDS: ONDANSETRON 2 MG/ML inj 4 MG IVP (23:07)
[2022-07-20] VITALS (14 sets, daily range): BP systolic 98–123; BP diastolic 64–90; PULSE 89–95; RESP 16–20; TEMP 36.2–36.9; O2SAT 90–95
[2022-07-20] MEDS: ONDANSETRON 2 MG/ML inj 4 MG IVP ×3 (02:44→12:25)
[2022-07-20] MEDS: HYDROmorphone 0.5 mg/0.5 ml inj IVP (02:44)
[2022-07-20] MEDS: SODIUM CHLORIDE 0.9 % (FLUSH) 10 ML SYRINGE 5 ML IVF ×3 (02:45→09:05)
--- NOTE | 2022-07-20 06:43 | PC.NURSE ---
07: A x 1 with gb to BSC. Urinates sm amount frequently. Nauseous, Zofran given x2. 1x clear green emesis, ~100mL~. c/o abd pain 04/10, 0.5 Dilaudid given with relief. Pt states she?s not passing flatus, however occasionally has the urge to have a BM. No BM this shift. No Ativan needed per [facility] protocol.
--- NOTE | 2022-07-20 07:00 | CRLHL7_ITS ---
For Patients: As a result of the Century Cures Act, medical imaging exams and procedure reports are released immediately into your electronic medical record. You may view this report before your referring provider. If you have questions, please contact your health care provider. Indication: Bowel obstruction. Technique: Abdomen 1 views. Comparison: CT abdomen pelvis July 18, 2022. Findings/Impression: Gastrografin is seen throughout much of the small bowel which remains distended. Contrast does not appear to have reached the colon. No new abnormality. Dictated by Thanh Sorensen MD @ 07/20/2022 8:02:52 AM (Electronically Signed)
[2022-07-20 07:22] LABS: Basophils Absolute Auto 0.01 K/uL (0.00-0.30); Basophils Percent Auto 0.1 % (0.0-3.0); Eosinophils Absolute Auto 0.03 K/uL (0.00-0.50); Eosinophils Percent Auto 0.4 % (0.0-7.0); Hematocrit 40.7 % (33.0-51.0); Lymphocytes Percent Auto 15.2 % (20-44); Mean Corpuscular HGB Conc 32 gm/dL (32-36); Mean Corpuscular Hemoglobin 35 pg (26-34); Mean Corpuscular Volume 109 fL (80-100); Monocytes Percent Auto 14.4 % (0.0-11.0); Neutrophils Percent Auto 69.9 % (42.0-72.0); Platelet Count* 203 K/uL (140-440); RDW Coefficient of Variation % 12.4 % (11.5-15.5); Red Blood Count 3.73 m/uL (4.00-5.20); White Blood Count* 6.73 K/uL (4.50-11.00)
[2022-07-20 07:27] LABS: Slide Review Reflex Yes
[2022-07-20 07:37] LABS: Chloride* 112 mmol/L (96-114); Potassium* 4.1 mmol/L (3.6-5.1); Sodium* 145 mmol/L (135-149)
[2022-07-20 07:40] LABS: Blood Urea Nitrogen* 7 mg/dL (7-30); Carbon Dioxide* 30 mmol/L (20-32); Creatinine* 0.4 mg/dL (0.5-1.5); Est. Creatinine Clearance* 32.57; Estimated Glomerular Filt Rate 103 ml/min
[2022-07-20 07:41] LABS: Glucose* 131 mg/dL (60-115)
[2022-07-20 07:57] LABS: Slide Review Acceptable Review (Acceptable)
[2022-07-20] MEDS: PANTOPRAZOLE SODIUM 40 MG INJ IVP (09:04)
[2022-07-20] MEDS: FOLIC ACID 1 MG TABLET PO (09:05)
[2022-07-20] MEDS: THIAMINE 100 MG TABLET PO (09:16)
--- NOTE | 2022-07-20 10:24 | P.IMPN_ITS ---
Progress Note: A&P Assessment and plan (1) Complete obstruction of small intestine: Problem details: - appreciate input from General surgery Status: Acute (2) UTI (urinary tract infection): Problem details: - UCx growing Klebsiella; sensitive to rocephin; On IV Rocephin (07/18) Status: Acute (3) Hypotension: Problem details: - likely worsened during hospital stay, as patient is not actively drinking alcohol - holding home lisinopril, orthostatics ordered - no evidence of sepsis, on IV Rocephin for UTI, WBC reassuring and afebrile Status: Acute (4) Alcohol abuse: Problem details: - with evidence of macrocytosis on labs - supplement B12/Folate - no history of withdrawal, per patient and . CIWA ordered Status: Acute (5) Hypertension: Status: Acute (6) Depression: Status: Acute (7) HLD (hyperlipidemia): Status: Acute (8) Tobacco abuse disorder: Problem details: - on nicotine patch Status: Acute Subjective Date Seen: 07/20/22 Interval history: patient complains of nausea; episode of vomiting earlier no BM abdominal pain -10/09 Exam Narrative: Exam Narrative: Gen: no acute distress HEENT: NCAT EOMI mmm CV: RRR normal s1 s2 Lungs: CTAB Abd: Soft,nt, nd Neuro: Alert, oriented, CN grossly intact; nonfocal screening?exam Psych: appropriate affect MSK: age appropriate muscle mass Skin; Warm, dry no rash on face Const: Vital Signs, click to edit/add: Vital Signs - 24 hr 07/19/22 11:15 07/19/22 11:15 07/19/22 11:15 Temperature 98.0 F 98.0 F Pulse Rate [Left P ulse Oximeter] 90 90 Pulse Rate [orthos tatic lying Right Radial] 90 Pulse Rate [orthos tatic sitting Righ t Radial] 93 Pulse Rate [orthos tatic standing Rig ht Radial] 105 H Respiratory Rate 18 18 Blood Pressure [Le ft Arm] 112/67 112/67 Blood Pressure [or thostatic lying Ri ght Arm] 112/67 Blood Pressure [or thostatic sitting Right Arm] 83/52 L Blood Pressure [or thostatic standing Right Arm] 71/53 L Pulse Oximetry 93 93 Oxygen Delivery Me thod Room Air Room Air 07/19/22 16:06 07/19/22 15:00 07/19/22 20:15 Temperature 98.0 F 98.2 F Pulse Rate [Left P ulse Oximeter] 93 93 91 Pulse Rate [orthos tatic lying Right Radial] Pulse Rate [orthos tatic sitting Righ t Radial] Pulse Rate [orthos tatic standing Rig ht Radial] Respiratory Rate 18 18 18 Blood Pressure [Le ft Arm] 102/67 98/66 Blood Pressure [or thostatic lying Ri ght Arm] Blood Pressure [or thostatic sitting Right Arm] Blood Pressure [or thostatic standing Right Arm] Pulse Oximetry 91 92 Oxygen Delivery Me thod Room Air Room Air 07/19/22 20:29 07/19/22 23:02 07/19/22 23:00 Temperature 98.2 F 98 F Pulse Rate [Left P ulse Oximeter] 91 84 90 Pulse Rate [orthos tatic lying Right Radial] Pulse Rate [orthos tatic sitting Righ t Radial] Pulse Rate [orthos tatic standing Rig ht Radial] Respiratory Rate 18 18 20 Blood Pressure [Le ft Arm] 98/66 103/64 Blood Pressure [or thostatic lying Ri ght Arm] Blood Pressure [or thostatic sitting Right Arm] Blood Pressure [or thostatic standing Right Arm] Pulse Oximetry 92 90 Oxygen Delivery Me thod Room Air 07/20/22 00:03 07/20/22 02:56 07/20/22 02:59 Temperature 97.7 F 97.6 F 97.6 F Pulse Rate [Left P ulse Oximeter] 90 95 95 Pulse Rate [orthos tatic lying Right Radial] Pulse Rate [orthos tatic sitting Righ t Radial] Pulse Rate [orthos tatic standing Rig ht Radial] Respiratory Rate 20 18 18 Blood Pressure [Le ft Arm] 103/64 98/68 98/68 Blood Pressure [or thostatic lying Ri ght Arm] Blood Pressure [or thostatic sitting Right Arm] Blood Pressure [or thostatic standing Right Arm] Pulse Oximetry 90 91 91 Oxygen Delivery Me thod Room Air Room Air Room Air 07/20/22 07:00 07/20/22 08:00 Temperature 97.2 F L 97.2 F L Pulse Rate [Left P ulse Oximeter] 91 91 Pulse Rate [orthos tatic lying Right Radial] Pulse Rate [orthos tatic sitting Righ t Radial] Pulse Rate [orthos tatic standing Rig ht Radial] Respiratory Rate 16 16 Blood Pressure [Le ft Arm] 119/66 119/66 Blood Pressure [or thostatic lying Ri ght Arm] Blood Pressure [or thostatic sitting Right Arm] Blood Pressure [or thostatic standing Right Arm] Pulse Oximetry 93 93 Oxygen Delivery Me thod Room Air Room Air Labs Labs: Laboratory Results - last 24 hr 07/20/22 07/20/22 07:03 07:03 WBC 6.73 RBC 3.73 L Hgb 13.0 Hct 40.7 MCV 109 H MCH 35 H MCHC 32 RDW Coeff of Ramon 12.4 Plt Count 203 Neut % (Auto) 69.9 Lymph % (Auto) 15.2 L [place] % (Auto) 14.4 H Eos % (Auto) 0.4 Baso % (Auto) 0.1 Neut # (Auto) 4.70 Lymph # (Auto) 1.00 [place] # (Auto) 1.00 H Eos # (Auto) 0.03 Baso # (Auto) 0.01 Diff Slide Review Acceptable Review Sodium 145 Potassium 4.1 Chloride 112 Carbon Dioxide 30 BUN 7 Creatinine 0.4 L Estimated Creat Clear 32.57 Estimated GFR 103 Glucose 131 H Calcium 9.0
[2022-07-20] MEDS: PROCHLORPERAZINE 5 MG/ML VIAL IVP (10:39)
[2022-07-20] MEDS: 5 % DEXTROSE/0.9% SOD CHLORIDE 1,000 ML 75 ML IV (12:25)
--- NOTE | 2022-07-20 15:32 | P.GSPN_ITS ---
Subjective Subjective Date Seen: 07/20/22 Interval history: Patient took Gastrografin last night but then did have emesis several times. She feels much better after this. She feels as though her pain is improved from yesterday. She is not passing any gas. No fevers. Exam Narrative: Exam Narrative: General: No acute distress CV: Regular rate Respiratory: Breathing nonlabored on room air Abdomen: More protuberant today than yesterday. Nontender. Absent bowel sounds Const: Vital Signs, click to edit/add: Vital Signs - 24 hr 07/19/22 16:06 07/19/22 20:15 07/19/22 20:29 Temperature 98.2 F 98.2 F Pulse Rate [Left P ulse Oximeter] 93 91 91 Respiratory Rate 18 18 18 Blood Pressure [Le ft Arm] 98/66 98/66 Pulse Oximetry 92 92 [facility] 07/19/22 23:02 07/19/22 23:00 07/20/22 00:03 Temperature 98 F 97.7 F Pulse Rate [Left P ulse Oximeter] 84 90 90 Respiratory Rate 18 20 20 Blood Pressure [Le ft Arm] 103/64 103/64 Pulse Oximetry 90 90 [facility] 07/20/22 02:56 07/20/22 02:59 07/20/22 07:00 Temperature 97.6 F 97.6 F 97.2 F L Pulse Rate [Left P ulse Oximeter] 95 95 91 Respiratory Rate 18 18 16 Blood Pressure [Le ft Arm] 98/68 98/68 119/66 Pulse Oximetry 91 91 93 [facility] Room [facility] Room Air 07/20/22 08:00 07/20/22 11:00 07/20/22 12:00 Temperature 97.2 F L 97.2 F L 97.2 F L Pulse Rate [Left P ulse Oximeter] 91 89 89 Respiratory Rate 16 16 16 Blood Pressure [Le ft Arm] 119/66 104/72 104/72 Pulse Oximetry 93 92 92 [facility] Room Air Room Air Labs/Imaging Labs Labs: Labs are stable/without significant abnormality Imaging Imaging: X-ray shows dilated loops of small bowel with persistent contrast in the small bowel, not having moved into the colon Progress Note: A&P Assessment and plan (1) Complete obstruction of small intestine: Problem details: - appreciate input from General surgery Status: Acute (2) Tobacco abuse disorder: Problem details: - on nicotine patch Status: Acute (3) Alcohol abuse: Problem details: - with evidence of macrocytosis on labs - supplement B12/Folate - no history of withdrawal, per patient and . [facility] ordered Status: Acute Plan The patient is a 77-year-old female with a small-bowel obstruction. She and I discussed that since the contrast has not moved through and she seems somewhat more distended today I do think she is going to need surgery to resolve this. We discussed that I will re-evaluate her later today if she is stable and her pain continues to be improved from yesterday then we can reasonably wait until tomorrow which would give her 48 hours of the Gastrografin challenge. If her pain worsens or she worsens then we should plan on surgery today. Otherwise we will plan on exploratory laparotomy tomorrow but we will repeat an x-ray in the morning before hand. She is agreeable with this plan
--- NOTE | 2022-07-20 16:40 | PC.NURSE ---
PATIENT CRABBY THIS MORNING, ALERT AND ORIENTED ALTHOUGH FORGETFUL, UP WITH A1 TOLERATING FAIRLY, PATIENT EXPRESSES FEELING NAUSEATED WITH MOVEMENT AND WITH ICE CHIPS AND HAS HAD AN FREQUENT EMESIS TODAY, RECOMMENDED TO DECREASE ICE CHIP INTAKE PATIENT CONTINUES TO TAKE IN ICE CHIPS, ONCE COMPAZINE ORDER AND PRN ZOFRAN GIVEN FOR NAUSEA, EMESIS COLOR YELLOW TINGED RATING PAIN 0-3/10 NO NEED FOR PAIN MEDIATION.
[2022-07-20] MEDS: cefTRIAXone 1 GM in 0.9 % SODIUM CHLORIDE Mini-bag 100 ML IVPB (20:58)
[2022-07-21] VITALS (26 sets, daily range): BP systolic 83–143; BP diastolic 41–91; PULSE 52–105; RESP 16–20; TEMP 36–36.7; O2SAT 90–99; BMI 17.9
[2022-07-21] MEDS: 5 % DEXTROSE/0.9% SOD CHLORIDE 1,000 ML 75 ML IV ×2 (00:48→14:43)
--- NOTE | 2022-07-21 06:27 | PC.NURSE ---
Status [id number] Alert and oriented. Pleasant and cooperative. Denies pain. NG was placed around 0130 d/t emesis. Immediate return of 1000mL of gastric contents. Total output this shift, 1800mL. Remains NPO. VSS on room air. Up with stand by to bathroom. D5NS at 75mL/hr. Continues on IV Rocephin. Plan for surgery today.
[2022-07-21 06:49] LABS: Chloride* 113 mmol/L (96-114); Sodium* 145 mmol/L (135-149)
[2022-07-21 06:52] LABS: Basophils Absolute Auto 0.01 K/uL (0.00-0.30); Basophils Percent Auto 0.2 % (0.0-3.0); Blood Urea Nitrogen* 7 mg/dL (7-30); Carbon Dioxide* 30 mmol/L (20-32); Creatinine* 0.4 mg/dL (0.5-1.5); Eosinophils Absolute Auto 0.04 K/uL (0.00-0.50); Eosinophils Percent Auto 0.8 % (0.0-7.0); Est. Creatinine Clearance* 32.57; Estimated Glomerular Filt Rate 103 ml/min; Glucose* 113 mg/dL (60-115); Hematocrit 38.5 % (33.0-51.0); Hemoglobin* 12.5 gm/dL (12.0-16.0); Lymphocytes Percent Auto 14.5 % (20-44); Mean Corpuscular HGB Conc 33 gm/dL (32-36); Mean Corpuscular Hemoglobin 35 pg (26-34); Mean Corpuscular Volume 108 fL (80-100); Monocytes Percent Auto 15.6 % (0.0-11.0); Neutrophils Absolute Auto 3.36 K/uL (1.7-7.0); Neutrophils Percent Auto 68.9 % (42.0-72.0); Platelet Count* 178 K/uL (140-440); RDW Coefficient of Variation % 12.2 % (11.5-15.5); Red Blood Count 3.57 m/uL (4.00-5.20); White Blood Count* 4.88 K/uL (4.50-11.00)
[2022-07-21 06:53] LABS: Calcium* 8.4 mg/dL (8.4-10.6); Magnesium* 1.9 mg/dL (1.5-2.6)
[2022-07-21 06:57] LABS: Slide Review Reflex No
[2022-07-21 07:00] LABS: Potassium* 2.8 mmol/L (3.6-5.1)
--- NOTE | 2022-07-21 07:00 | CRLHL7_ITS ---
For Patients: As a result of the Century Cures Act, medical imaging exams and procedure reports are released immediately into your electronic medical record. You may view this report before your referring provider. If you have questions, please contact your health care provider. Indication: Bowel obstruction. Technique: Abdomen 1 views. Comparison: July 20, 2022. Findings/Impression: Endotracheal tube tip is in the proximal stomach. Small bowel obstruction pattern is unchanged if not slightly improved. No new abnormality. Dictated by Thanh Sorensen MD @ 07/21/2022 7:24:26 AM (Electronically Signed)
[2022-07-21] MEDS: POTASSIUM CHLORIDE 10 MEQ/100 ML PIGGYBACK 100 MEQ IVPB (07:39)
[2022-07-21] MEDS: PANTOPRAZOLE SODIUM 40 MG INJ IVP (08:51)
[2022-07-21] MEDS: SODIUM CHLORIDE 0.9 % (FLUSH) 10 ML SYRINGE 5 ML IVF (08:53)
[2022-07-21] MEDS: POTASSIUM CHLORIDE 10 MEQ, LIDOCAINE 1 % 1 ML in 0.9 % SODIUM CHLORIDE 100 ml 100 ML 106 MEQ IVPB ×3 (08:58→12:00)
--- NOTE | 2022-07-21 09:12 | PM.GSPN ---
Subjective Subjective Date Seen: 07/21/22 Interval history: Lianna feels much better after the NG was placed. She has not been passing gas. In because she continued to vomit overnight an NG was placed and had almost 2 L out. She was noted to be hypokalemic and so has been getting potassium this morning. Exam Narrative: Exam Narrative: General: No acute distress HEENT: NG in place. Greenish drainage out. CV: Regular rate and rhythm Respiratory: Clear to auscultation bilaterally Abdomen: Less distended. No bowel sounds noted on exam. Const: Vital Signs, click to edit/add: Vital Signs - 24 hr 07/20/22 11:00 07/20/22 12:00 07/20/22 15:00 Temperature 97.2 F L 97.2 F L 97.6 F Pulse Rate [Left P ulse Oximeter] 89 89 95 Respiratory Rate 16 16 16 Blood Pressure [Le ft Arm] 104/72 104/72 122/67 Pulse Oximetry 92 92 95 Oxygen Delivery Me thod Room Air Room Air Room Air 07/20/22 16:00 07/20/22 20:38 07/20/22 20:00 Temperature 97.6 F 97.5 F L 97.5 F L Pulse Rate [Left P ulse Oximeter] 95 95 95 Respiratory Rate 16 16 16 Blood Pressure [Le ft Arm] 122/67 123/90 H 123/90 H Pulse Oximetry 95 91 91 Oxygen Delivery Fl [facility]od Room Air Room Air Room Air 07/20/22 23:00 07/20/22 23:31 07/20/22 23:35 Temperature 98.4 F 98.4 F Pulse Rate [Left P ulse Oximeter] 95 93 93 Respiratory Rate 16 16 16 Blood Pressure [Le ft Arm] 114/78 114/78 Pulse Oximetry 91 91 Oxygen Delivery Fl thod Room Air Room Air 07/21/22 03:00 07/21/22 04:00 Temperature 97.9 F 97.9 F Pulse Rate [Left P ulse Oximeter] 88 88 Respiratory Rate 20 20 Blood Pressure [Le ft Arm] 116/73 116/73 Pulse Oximetry 91 91 Oxygen Delivery Fl thod Room Air Room Air Labs/Imaging Labs Labs: White blood cell count normal. Hemoglobin stable. Potassium is low at 2.8. Magnesium normal. Imaging Imaging: X-ray of the abdomen was obtained which shows unchanged small-bowel obstruction. Contrast has advanced farther, however I did review the imaging with the radiologist and appears as though it is still entirely within the small bowel. This fits the patient's clinical picture as well. Progress Note: A&P Assessment and plan (1) Complete obstruction of small intestine: Problem details: - appreciate input from General surgery Status: Acute (2) Hypokalemia: Status: Acute Plan The patient is a 77-year-old female with small-bowel obstruction which is unresolved 48 hours after administration of Gastrografin. I discussed with the patient and her as well as her son that I recommended surgery to relieve the obstruction. We discussed that the procedure can be as simple as lysing when adhesion to more complicated such as needing resection of small bowel and even in some extreme cases a temporary ostomy. We discussed risks of surgery and we also discussed postoperative recovery. They are agreeable to proceeding we will plan on doing this today as soon as Anesthesia is comfortable with her potassium level. Replacement is currently on going.
[2022-07-21] MEDS: PIPERACILLIN/TAZOBACTAM 3.375 GM INJ IVPB (11:30)
--- NOTE | 2022-07-21 11:49 | W.PM.NB ---
Nerve Block Nerve Block Time Seen by Provider: : Date Seen: 07/21/22 Type of block requested by surgeon for post-operative analgesia: TAP Side: bilateral Time out performed: Yes Verification of patient name: Yes Verification of date of : Yes Site marking: site marked Name of person performing procedure: Adam Continuous monitoring Was continuous monitoring of O2 sat, B/P, quality assurance monitor, recorded every 15 minutes?: Yes Procedure Checklist: sterile prep, needles and gloves Ultrasound guided. Images saved: Yes Medications given in 5ml increments after negative aspiration: Marcaine %: 0.25 mL: 30 Needle gauge: 20 and Exparel mL: 10 Patient tolerated procedure well: Yes Additional comments: Needle noted adjacent to nerve Block Charges Block Charge (with Pro Fee): TAP Bilateral Use of Ultrasound Machine for Block: Yes- US Guidance/pain block
[2022-07-21] MEDS: LACTATED RINGERS 1000 ML 1,000 ML 125 ML IV (12:04)
--- NOTE | 2022-07-21 13:13 | PM.GSPRC ---
Operative Note Date of procedure: 07/21/22 Pre-op diagnosis: Small-bowel obstruction Post-op diagnosis: Same Type of Procedure: 1. Exploratory laparotomy 2. Adhesiolysis Indications: The patient is a 77-year-old Procedure Description: After discussing the risks and benefits of the procedure, the patient signed informed consent.? The operative site was marked and the patient was brought to the operating room and placed on the operating table in supine position.? Care was taken to pad the patient's pressure points.?? The patient was then intubated by anesthesia.?? The operative site was then prepped and draped in the usual sterile fashion.? A time-out was then performed. A midline incision was made from just above the umbilicus to lower abdomen. Dissection was carried down into the subcutaneous tissue using cautery. The fascia was incised in the midline. This was grasped with Misty clamps and the peritoneum was entered with a scissor. Serous fluid was noted. An Arias wound retractor was then placed into the wound. Small bowel was noted to be dilated but pink. The bowel was then run starting at the ligament of Treitz. This was run distally to the mid/distal small bowel when it was noted to be adherent to the pelvis. [place] as though there was perhaps a stitch in this area which it was adherent to. I then started at the terminal ileum and ran the bowel proximally and again I reached an area of adhesion. I was unable to visualize the adhesion which was stuck in the pelvis. I removed the wound retractor and extended the incision 2 cm. The wound retractor was then placed again into the wound and I was then able to visualize a single scar band wrapped around a loop of small bowel causing a closed loop obstruction. This band was divided and the small bowel was freed. The band was noted to be extending from the ileum approximately 20-30 cm proximal to the ileocecal valve to the pelvic sidewall on the right. The ileum was examined. There was a long segment which had been not frankly ischemic however pink/purple in appearance. The area of the obstruction proximally and distally showed mildly narrow small bowel. The tissue where the band had wrapped across was mildly ischemic-appearing. This immediately began to appear pink and well perfused, however to allow time to ensure viability, the small bowel bowel was placed back into the abdomen. The NG tube position was checked and found to be in good position. There was excellent return of gastric contents noted. After 10 minutes I ran the small bowel again. The bowel was pink and well perfused throughout. There were spotty areas on the proximal small bowel which had been dilated as well as the area in the obstruction which had small purplish spots of ischemia. There was no bahman necrosis. Again the bowel appeared to have excellent blood flow and there did not appear to be any areas that were necrotic or poorly perfused. The areas which were narrowed where the adhesive band was wrapped across for examine to ensure patency and no stricture. Both areas were patent. Once this was done, all the ascitic fluid was suctioned from the abdomen. The bowel was placed back in the abdomen in its normal position. The fascia was then closed with looped 0 Maxon in a running fashion. The skin was then closed in layers with 3 0 Vicryl dermal and 4 0 Monocryl running subcuticular suture. ? Sterile dressings were then applied. ? The patient was then woken and transported to the recovery area in stable condition. ? The patient tolerated the procedure well. Findings: 1. Single adhesive band causing obstruction of the terminal ileum, appeared to be a closed loop type of obstructive picture. 2. Mild spotty ischemia noted throughout the colon likely from distension without any necrotic areas. With excellent perfusion of the bowel noted once the obstruction was relieved. Anesthesia: GETA Surgeon: Nolvia Sutton MD Estimated blood loss (mL): 5 Condition: stable Disposition: PACU
--- NOTE | 2022-07-21 13:22 | W.ANESCHARGE ---
Anesthesia Charges Start Date/Time Anesthesia Start Date: 07/21/22 Anesthesia Start Time: 11:11 Stop Date/Time Anesthesia Stop Date: 07/21/22 Anesthesia Stop Time: 13:13 Summary Emergency: Yes Extremes of Age: Over 70-CPT 61695
[2022-07-21] MEDS: HYDROmorphone 0.5 mg/0.5 ml inj IVP ×3 (13:28→15:55)
--- NOTE | 2022-07-21 14:28 | W.ANESCHARGE ---
Anesthesia Charges Start Date/Time Anesthesia Start Date: 07/21/22 Anesthesia Start Time: 11:11 Stop Date/Time Anesthesia Stop Date: 07/21/22 Anesthesia Stop Time: 13:13 Summary Emergency: Yes Extremes of Age: Over 70-CPT 28576
--- NOTE | 2022-07-21 15:22 | PC.NURSE ---
CONFIRMED WITHE SURGEON NG ADVANCED IN SURGERY. PRIOR TO SURGERY 50 @ R NARE AFTER 57@ R NARE.
--- NOTE | 2022-07-21 15:28 | PC.NURSE ---
PATIENT AWAITING SURGERY TODAY, SISTER AND PRESENT AT BEDSIDE, PATIENT LEFT FLOOR TO SURGERY WITH DR. DUBOSE AROUND 1100 RETURNED TO FLOOR AROUND 1410, ABSENT BOWEL SOUNDS AFTER SURGERY, DRESSING TO ABDOMEN CDI WITH ICE TO SITE, PATIENT DECLINING PAIN AT REST, DECLINING NAUSEA, ALLOWED ICE CHIPS PER ORDER, EDUCATED ON MINIMAL INTAKE PATIENT VERBALIZED UNDERSTANDING, NG IN RIGHT NARE PATENT WITH YELLOW FLUIDS RETURNED.
[2022-07-21 16:07] LABS: Potassium* 3.5 mmol/L (3.6-5.1)
[2022-07-21] MEDS: cefTRIAXone 1 GM in 0.9 % SODIUM CHLORIDE Mini-bag 100 ML IVPB (21:02)
--- NOTE | 2022-07-21 22:06 | W.PM.CROSSCO ---
Subjective Subjective Interval history: patient hypotensive will check Lactate, hgb Bolus
[2022-07-21] MEDS: LACTATED RINGERS 1000 ML 500 ML IV (22:26)
[2022-07-21 22:33] LABS: Lactate* 1.4 mmol/L (0.5-1.9)
[2022-07-21 22:36] LABS: Hemoglobin* 11.7 gm/dL (12.0-16.0)
--- NOTE | 2022-07-21 22:37 | PC.NURSE ---
Shift [id number]- Patient is sleepy throughout shift. NG in place to LIS. She is up with A/1, walker, gaitbelt. She is dizzy when rising. BPs are decreased, urine output is poor. updated- see orders. She requests pain medication this afternoon for abdominal pain after movement, but declines since. Ice pace applied. Bandage is clean, dry and intact. She denies nausea.
[2022-07-21] MEDS: ALBUMIN HUMAN 25% 25 GM/100 ML VIAL IVPB (23:37)
[2022-07-22] VITALS (10 sets, daily range): BP systolic 103–144; BP diastolic 69–91; PULSE 76–96; RESP 16–18; TEMP 36–36.8; O2SAT 92–98
[2022-07-22] MEDS: POTASSIUM CHLORIDE 10 MEQ/100 ML PIGGYBACK 100 MEQ IVPB ×3 (00:23→02:26)
--- NOTE | 2022-07-22 03:02 | PC.NURSE ---
Pt up SBA to bedside commode. Voiding adequately. Refusing pain meds. Pain in abdomen with movement. Ice pack applied. NG set 57cm with minimal to no new output. Afebrile. BP 103/69.
[2022-07-22] MEDS: 5 % DEXTROSE/0.9% SOD CHLORIDE 1,000 ML 75 ML IV ×2 (04:55→17:55)
[2022-07-22] MEDS: PANTOPRAZOLE SODIUM 40 MG INJ IVP (09:25)
[2022-07-22] MEDS: SODIUM CHLORIDE 0.9 % (FLUSH) 10 ML SYRINGE 5 ML IVF ×2 (09:25→19:11)
[2022-07-22] MEDS: FOLIC ACID 1 MG TABLET PO (09:46)
[2022-07-22 11:29] LABS: Chloride* 114 mmol/L (96-114)
[2022-07-22 11:30] LABS: Potassium* 3.5 mmol/L (3.6-5.1); Sodium* 144 mmol/L (135-149)
[2022-07-22 11:33] LABS: Blood Urea Nitrogen* 7 mg/dL (7-30); Calcium* 7.6 mg/dL (8.4-10.6); Carbon Dioxide* 27 mmol/L (20-32); Creatinine* 0.4 mg/dL (0.5-1.5); Est. Creatinine Clearance* 32.57; Estimated Glomerular Filt Rate 103 ml/min; Glucose* 115 mg/dL (60-115)
--- NOTE | 2022-07-22 12:26 | P.GSPN_ITS ---
Subjective Subjective Date Seen: 07/22/22 Interval history: This morning Lianna states that she is doing great except that she cannot fart or poop and she would like to walk in the hallways. Her pain is well controlled Noted was that her estimated blood loss in the OR yesterday was er roneously reported as 500 mL. It was only 5 mL. Blood pressure was somewhat low overnight. Labs were evaluated and were normal. Exam Narrative: Exam Narrative: General: No acute distress HEENT: NG in place with decreased bilious drainage. CV: Regular rate and rhythm Respiratory: Clear to auscultation bilaterally Abdomen: Dressing is clean and dry. Abdomen is mildly distended. Const: Vital Signs, click to edit/add: Vital Signs - 24 hr 07/21/22 13:08 07/21/22 13:13 07/21/22 13:18 Temperature 98.0 F Pulse Rate 96 97 105 H Pulse Rate [Left P ulse Oximeter] Respiratory Rate 18 18 18 Blood Pressure 109/60 122/85 108/80 Blood Pressure [Le ft Arm] Pulse Oximetry 94 91 96 Oxygen Delivery Me thod OxyMask OxyMask OxyMask Oxygen Flow Rate 10 10 10 07/21/22 13:23 07/21/22 13:28 07/21/22 13:33 Temperature Pulse Rate 105 H 100 96 Pulse Rate [Left P ulse Oximeter] Respiratory Rate 18 18 18 Blood Pressure 110/71 109/60 97/72 Blood Pressure [Le ft Arm] Pulse Oximetry 95 94 97 Oxygen Delivery Me thod OxyMask OxyMask OxyMask Oxygen Flow Rate 10 10 10 07/21/22 13:38 07/21/22 13:43 07/21/22 13:48 Temperature Pulse Rate 96 96 92 Pulse Rate [Left P ulse Oximeter] Respiratory Rate 16 16 16 Blood Pressure 116/75 116/75 98/72 Blood Pressure [Le ft Arm] Pulse Oximetry 97 97 97 Oxygen Delivery Me thod OxyMask OxyMask OxyMask Oxygen Flow Rate 10 5 5 07/21/22 13:52 07/21/22 14:10 07/21/22 14:15 Temperature 98.0 F 97.2 F L 97.5 F L Pulse Rate 90 86 Pulse Rate [Left P ulse Oximeter] 81 Respiratory Rate 16 16 16 Blood Pressure 114/73 Blood Pressure [Le ft Arm] 112/91 H 106/72 Pulse Oximetry 97 93 Oxygen Delivery Me thod OxyMask OxyMask OxyMask Oxygen Flow Rate 3 4 2 07/21/22 14:30 07/21/22 15:00 07/21/22 15:30 Temperature 97.6 F 97.5 F L 96.8 F L Pulse Rate Pulse Rate [Left P ulse Oximeter] 89 52 L 92 Respiratory Rate 16 16 18 Blood Pressure Blood Pressure [Le ft Arm] 96/77 101/68 107/41 L Pulse Oximetry 97 93 94 Oxygen Delivery Me thod Nasal Cannula Nasal Cannula Nasal Cannula Oxygen Flow Rate 3 3 2 07/21/22 16:00 07/21/22 17:00 07/21/22 18:00 Temperature Pulse Rate Pulse Rate [Left P ulse Oximeter] 84 76 78 Respiratory Rate 18 16 16 Blood Pressure Blood Pressure [Le ft Arm] 100/63 93/59 L 96/60 Pulse Oximetry 96 98 96 Oxygen Delivery Me thod Nasal Cannula Nasal Cannula Nasal Cannula Oxygen Flow Rate 2 2 2 07/21/22 19:00 07/21/22 20:00 07/21/22 23:33 Temperature 97.8 F Pulse Rate Pulse Rate [Left P ulse Oximeter] 79 79 76 Respiratory Rate 16 16 16 Blood Pressure Blood Pressure [Le ft Arm] 110/63 83/57 L 101/63 Pulse Oximetry 96 99 97 Oxygen Delivery Me thod Nasal Cannula Nasal Cannula Nasal Cannula Oxygen Flow Rate 2 2 2 07/22/22 00:06 07/22/22 02:39 07/22/22 07:00 Temperature 97.6 F 97.0 F L Pulse Rate Pulse Rate [Left P ulse Oximeter] 76 84 93 Respiratory Rate 16 16 16 Blood Pressure Blood Pressure [Le ft Arm] 103/69 119/84 Pulse Oximetry 97 93 Oxygen Delivery Me thod Nasal Cannula Nasal Cannula Oxygen Flow Rate 1.5 1 Labs/Imaging Labs Labs: Potassium is still mildly low at 3.5. Hemoglobin last night was stable 10.7 Progress Note: A&P Assessment and plan (1) Hypokalemia: Status: Acute (2) Complete obstruction of small intestine: Problem details: - appreciate input from General surgery Status: Acute (3) S/P exploratory laparotomy: Problem details: Lysis of adhesions for bowel obstruction Status: Acute Plan The patient is a 77-year-old female who is postop day 1 status post exploratory laparotomy and lysis of an adhesion causing a small-bowel obstruction. All of her bowel appeared well perfused at the time of surgery, however there were some areas that had been mildly ischemic though again the bowel all appeared well perfused and viable. Therefore, we will monitor her closely for any signs or symptoms of sepsis as well as wait to remove her NG until she has return of bowel function. -continue NG tube to low intermittent suction okay to clamp for walks -PT OT -replaced potassium this morning. Will recheck tomorrow. -Lovenox for DVT prophylaxis -encourage IS. -patient is on ceftriaxone for UTI. Will discuss with hospitalist. From my standpoint does not need antibiotics.
[2022-07-22] MEDS: ENOXAPARIN 40 MG/0.4 ML INJ SUBCUT (13:09)
[2022-07-22 13:40] LABS: Basophils Absolute Auto 0.01 K/uL (0.00-0.30); Basophils Percent Auto 0.1 % (0.0-3.0); Eosinophils Absolute Auto 0.03 K/uL (0.00-0.50); Eosinophils Percent Auto 0.4 % (0.0-7.0); Hematocrit 36.7 % (33.0-51.0); Hemoglobin* 11.7 gm/dL (12.0-16.0); Immature Granulocytes Abs Auto 0.01 K/uL (0.00-0.30); Immature Granulocytes Pct Auto 0.1 %; Lymphocytes Percent Auto 12.1 % (20-44); Mean Corpuscular HGB Conc 32 gm/dL (32-36); Mean Corpuscular Hemoglobin 35 pg (26-34); Mean Corpuscular Volume 109 fL (80-100); Neutrophils Percent Auto 75.3 % (42.0-72.0); Platelet Count* 135 K/uL (140-440); RDW Coefficient of Variation % 12.2 % (11.5-15.5); Red Blood Count 3.37 m/uL (4.00-5.20); White Blood Count* 7.59 K/uL (4.50-11.00)
[2022-07-22 13:44] LABS: Slide Review Reflex Yes
[2022-07-22 13:45] LABS: Slide Review Acceptable Review (Acceptable)
[2022-07-22 13:55] LABS: Chloride* 113 mmol/L (96-114); Potassium* 3.6 mmol/L (3.6-5.1); Sodium* 144 mmol/L (135-149)
[2022-07-22 13:58] LABS: Blood Urea Nitrogen* 7 mg/dL (7-30); Calcium* 7.7 mg/dL (8.4-10.6); Carbon Dioxide* 30 mmol/L (20-32); Creatinine* 0.4 mg/dL (0.5-1.5); Est. Creatinine Clearance* 32.57; Estimated Glomerular Filt Rate 103 ml/min; Glucose* 116 mg/dL (60-115)
[2022-07-22] MEDS: HYDROmorphone 0.5 mg/0.5 ml inj IVP (19:11)
--- NOTE | 2022-07-22 19:16 | PC.NURSE ---
End of Shift: Patient pleasant and cooperative. Afebrile. NG to LIS with yellow/green output. Denies nausea. Rating pain 1-3/10 and denies need for PRN pain medication. Abdominal incision C/D/I. Denies passing flatus. Up to chair and bathroom with 1 assist and gait belt. Attempted to wean O2 this AM and sats to 83% on room air. Was able to wean to RA by the end of the shift and sats in the low 90s. Small blood clot noted in NG tube this evening and MD updated.
--- NOTE | 2022-07-22 19:21 | P.IMPN_ITS ---
Progress Note: A&P Assessment and plan (1) Complete obstruction of small intestine: Problem details: Status post lysis of adhesions Status: Acute (2) S/P exploratory laparotomy: Problem details: Lysis of adhesions for bowel obstruction doing fairly well. Co manage with surgery Status: Acute (3) Hypokalemia: Problem details: Replace and follow Status: Acute (4) Hypertension: Problem details: Monitor and treat as needed. Status: Acute (5) UTI (urinary tract infection): Problem details: - UCx growing Klebsiella; sensitive to rocephin; On IV Rocephin (07/18). 1 more day of IV antibiotics and discontinue. Patient not obviously ill or symptomatic. Status: Acute (6) Alcohol abuse: Problem details: - with evidence of macrocytosis on labs - supplement B12/Folate - no history of withdrawal, per patient and . [facility] ordered Status: Acute Plan Continue in hospital for management of postoperative cares and management of chronic medical problems. Time Spent With Patient Total time spent: Total time spent today is 40 minutes, 30 minutes in coordination of care discussing with patient and other providers management of bowel obstruction, postoperative care, management of fluid and electrolytes. Subjective Date Seen: 07/22/22 Interval history: 77-year-old female seen in followup of hospitalization for small-bowel obstruction now status post surgery for lysis of adhesions day 1. Patient reports generally doing well today. She still has an NG tube in place. She reports some abdominal pain but otherwise no concerns today. Exam Narrative: Exam Narrative: She is alert and appears in no distress. Speech is normal. She is oriented to her circumstances. Respirations are clear to auscultation. Breathing is unlabored. Somewhat diminished breath sounds. No abnormal breath sounds. Cardiovascular: S1, S2, regular rate and rhythm. Abdomen: Bowel sounds diminished. Abdomen with midline incision covered with a dressing without significant drainage. No significant erythema. Mild tenderness consistent with her postoperative status. Extremities without significant edema. Const: Vital Signs, click to edit/add: Vital Signs - 24 hr 07/21/22 20:00 07/21/22 23:33 07/22/22 00:06 Temperature 97.8 F Pulse Rate [Left P ulse Oximeter] 79 76 76 Respiratory Rate 16 16 16 Blood Pressure [Le ft Arm] 83/57 L 101/63 Blood Pressure [Ri ght Arm] Pulse Oximetry 99 97 Oxygen Delivery Me thod Nasal Cannula Nasal Cannula Oxygen Flow Rate 2 2 07/22/22 02:39 07/22/22 07:00 07/22/22 07:00 Temperature 97.6 F 97.0 F L Pulse Rate [Left P ulse Oximeter] 84 93 93 Respiratory Rate 16 16 16 Blood Pressure [Le ft Arm] 103/69 119/84 Blood Pressure [Ri ght Arm] Pulse Oximetry 97 93 Oxygen Delivery Me thod Nasal Cannula Nasal Cannula Oxygen Flow Rate 1.5 1 07/22/22 11:00 07/22/22 15:00 07/22/22 15:00 Temperature 97.0 F L 98.3 F Pulse Rate [Left P ulse Oximeter] 84 96 96 Respiratory Rate 16 16 16 Blood Pressure [Le ft Arm] Blood Pressure [Ri ght Arm] 120/78 127/82 Pulse Oximetry 98 92 Oxygen Delivery Me thod Nasal Cannula Nasal Cannula Oxygen Flow Rate 1 1 07/22/22 16:00 Temperature Pulse Rate [Left P ulse Oximeter] Respiratory Rate Blood Pressure [Le ft Arm] Blood Pressure [Ri ght Arm] Pulse Oximetry 93 Oxygen Delivery Me thod Room Air Oxygen Flow Rate Documenting provider has reviewed patient's vital signs: yes Labs Labs: Laboratory Results - last 24 hr 07/21/22 07/21/22 07/22/22 22:27 22:27 11:09 WBC RBC Hgb 11.7 L Hct MCV MCH MCHC RDW Coeff of Ramon Plt Count Neut % (Auto) Lymph % (Auto) [place] % (Auto) Eos % (Auto) Baso % (Auto) Neut # (Auto) Lymph # (Auto) [place] # (Auto) Eos # (Auto) Baso # (Auto) Diff Slide Review Sodium 144 Potassium 3.5 L Chloride 114 Carbon Dioxide 27 BUN 7 Creatinine 0.4 L Estimated Creat Clear 32.57 Estimated GFR 103 Glucose 115 Lactate 1.4 Calcium 7.6 L 07/22/22 07/22/22 13:27 13:27 WBC 7.59 RBC 3.37 L Hgb 11.7 L Hct 36.7 MCV 109 H MCH 35 H MCHC 32 RDW Coeff of Ramon 12.2 Plt Count 135 L Neut % (Auto) 75.3 H Lymph % (Auto) 12.1 L [place] % (Auto) 12.0 H Eos % (Auto) 0.4 Baso % (Auto) 0.1 Neut # (Auto) 5.70 Lymph # (Auto) 0.90 [place] # (Auto) 0.90 Eos # (Auto) 0.03 Baso # (Auto) 0.01 Diff Slide Review Acceptable Review Sodium 144 Potassium 3.6 Chloride 113 Carbon Dioxide 30 BUN 7 Creatinine 0.4 L Estimated Creat Clear 32.57 Estimated GFR 103 Glucose 116 H Lactate Calcium 7.7 L
[2022-07-22] MEDS: 5 % DEXTROSE IN LAC RINGER'S 1,000 ML 75 ML IV (20:54)
[2022-07-22] MEDS: cefTRIAXone 1 GM in 0.9 % SODIUM CHLORIDE Mini-bag 100 ML IVPB (20:55)
--- NOTE | 2022-07-22 22:25 | PC.NURSE ---
Shift [id number]- Patient states some pain- she is somewhat reluctant to IV pain medication, but does agree and states relief. She declines ice to abdomen. She refuses walker- gait belt and assist of 1 provided. She does hang on to staff and/or furniture while walking. She is voiding.
[2022-07-23] VITALS (8 sets, daily range): BP systolic 127–165; BP diastolic 80–97; PULSE 68–91; RESP 16–20; TEMP 36.3–36.6; O2SAT 89–95
--- NOTE | 2022-07-23 06:10 | PC.NURSE ---
Pt rested well this night. Up A1 and ambulatory. Pt gets SOB with exertion. Needed to have 1L NC on while sleeping to maintain O2 in the low 90s. States pain is under control. Reports not passing gas.
[2022-07-23 07:50] LABS: Chloride* 110 mmol/L (96-114); Sodium* 142 mmol/L (135-149)
[2022-07-23 07:53] LABS: Blood Urea Nitrogen* 3 mg/dL (7-30); Carbon Dioxide* 29 mmol/L (20-32); Creatinine* 0.3 mg/dL (0.5-1.5); Est. Creatinine Clearance* 34.91; Estimated Glomerular Filt Rate 111 ml/min; Glucose* 99 mg/dL (60-115)
[2022-07-23 07:54] LABS: Calcium* 7.7 mg/dL (8.4-10.6)
[2022-07-23 07:59] LABS: Potassium* 2.7 mmol/L (3.6-5.1)
[2022-07-23] MEDS: SODIUM CHLORIDE 0.9 % (FLUSH) 10 ML SYRINGE 5 ML IVF (08:44)
[2022-07-23] MEDS: FOLIC ACID 1 MG TABLET PO (08:44)
[2022-07-23] MEDS: PANTOPRAZOLE SODIUM 40 MG INJ IVP (08:44)
[2022-07-23] MEDS: POTASSIUM CHLORIDE 10 MEQ/100 ML PIGGYBACK 100 MEQ IVPB ×6 (09:34→21:33)
[2022-07-23] MEDS: ENOXAPARIN 40 MG/0.4 ML INJ SUBCUT (13:56)
--- NOTE | 2022-07-23 14:20 | PM.GSPN ---
Subjective Subjective Date Seen: 07/23/22 Interval history: Lianna is doing well today. She denies significant pain. She feels as though she could pass gas soon. No nausea. She is hungry and would like to eat. Exam Narrative: Exam Narrative: General: No acute distress HEENT: Has had about 100 mL out of her NG today. Has taken in 1 cup of ice chips. Abdomen: Less distended today. Minimally tender to palpation. Incision is clean without erythema or significant drainage. Small amount of ecchymosis noted particularly at the superior aspect. No bowel sounds appreciated. Const: Vital Signs, click to edit/add: Vital Signs - 24 hr 07/22/22 15:00 07/22/22 15:00 07/22/22 16:00 Temperature 98.3 F Pulse Rate [Left P ulse Oximeter] 96 96 Respiratory Rate 16 16 Blood Pressure [Le ft Arm] Blood Pressure [Ri ght Arm] 127/82 Pulse Oximetry 92 93 Oxygen Delivery Me thod Nasal Cannula Room Air Oxygen Flow Rate 1 07/22/22 19:00 07/22/22 23:03 07/22/22 23:06 Temperature 96.8 F L 98 F Pulse Rate [Left P ulse Oximeter] 78 86 Respiratory Rate 18 16 Blood Pressure [Le ft Arm] Blood Pressure [Ri ght Arm] 138/91 H 144/77 H Pulse Oximetry 96 92 92 Oxygen Delivery Me thod Room Air Nasal Cannula Nasal Cannula Oxygen Flow Rate 1 1 07/22/22 23:07 07/23/22 02:40 07/23/22 07:00 Temperature 97.8 F Pulse Rate [Left P ulse Oximeter] 86 84 Respiratory Rate 16 16 Blood Pressure [Le ft Arm] Blood Pressure [Ri ght Arm] 127/80 Pulse Oximetry 94 93 Oxygen Delivery Me thod Nasal Cannula Nasal Cannula Oxygen Flow Rate 1 1 07/23/22 07:00 07/23/22 07:00 07/23/22 09:15 Temperature 97.6 F Pulse Rate [Left P ulse Oximeter] 91 91 Respiratory Rate 20 18 18 Blood Pressure [Le ft Arm] 132/91 H Blood Pressure [Ri ght Arm] Pulse Oximetry 93 95 Oxygen Delivery Me thod Nasal Cannula Room Air Oxygen Flow Rate 1 07/23/22 11:00 Temperature 97.8 F Pulse Rate [Left P ulse Oximeter] 78 Respiratory Rate 18 Blood Pressure [Le ft Arm] Blood Pressure [Ri ght Arm] 149/87 H Pulse Oximetry 91 Oxygen Delivery Me thod Room Air Oxygen Flow Rate Labs/Imaging Labs Labs: Patient is hypokalemic with a potassium of 2.7. Hemoglobin/white blood cell count stable/normal Progress Note: A&P Assessment and plan (1) S/P exploratory laparotomy: Problem details: Lysis of adhesions for bowel obstruction doing fairly well. Co manage with surgery Status: Acute (2) Hypokalemia: Problem details: Replace and follow Status: Acute Plan The AVN is a 77-year-old female postop day 2 status post ex lap and lysis of adhesions for small-bowel obstruction. She appears to be progressing appropriately and in fact has diuresed quite a bit of fluid. She is hypokalemic however and so we are replacing her potassium at 50 mL/hour. Once this is done maintenance IV fluids could be left at 50 mL/hour. I explained to the patient that she seems to be turning the corner, however I am hesitant to remove the NG tube until she has antegrade bowel function. We will know this because she will be passing gas. In the meantime she should continue with incentive spirometry as well as ambulation. No need for any antibiotics. Continue Lovenox.
[2022-07-23] MEDS: 5 % DEXTROSE IN LAC RINGER'S 1,000 ML 75 ML IV (15:27)
--- NOTE | 2022-07-23 16:26 | PM.IMPN1 ---
Progress Note: A&P Assessment and plan (1) S/P exploratory laparotomy: Problem details: Lysis of adhesions for bowel obstruction doing fairly well. Co manage with surgery Status: Acute (2) Hypokalemia: Problem details: Replace and follow Status: Acute Plan Continue in hospital for NG suctioning, IV fluids, IV potassium replacement. Awaiting antegrade bowel function. Time Spent With Patient Total time spent: Total time spent today is 30 minutes, 20 minutes in coordination of care discussing with patient and daughter ongoing management of small bowel obstruction, recovery from surgery and management of hypokalemia. Subjective Date Seen: 07/23/22 Interval history: 77-year-old female seen in followup of small bowel obstruction with lysis of adhesions 2 days ago. She reports no new concerns today. She is anxious to get her NG tube removed and begin to eat. She has no shortness of breath. She has not yet passed gas. She is not having significant abdominal pain. Exam Narrative: Exam Narrative: She is alert and pleasant. He is oriented to her circumstances and gives her own history. Respirations are clear to auscultation. Cardiovascular: S1, S2, regular rate and rhythm. No murmur gallop or rub. Abdomen: Bowel sounds are diminished. Abdomen is soft without tenderness or mass. Extremities without edema. Const: Vital Signs, click to edit/add: Vital Signs - 24 hr 07/22/22 19:00 07/22/22 23:03 07/22/22 23:06 Temperature 96.8 F L 98 F Pulse Rate [Left P ulse Oximeter] 78 86 Respiratory Rate 18 16 Blood Pressure [Le ft Arm] Blood Pressure [Ri ght Arm] 138/91 H 144/77 H Pulse Oximetry 96 92 92 Oxygen Delivery Me thod Room Air Nasal Cannula Nasal Cannula Oxygen Flow Rate 1 1 07/22/22 23:07 07/23/22 02:40 07/23/22 07:00 Temperature 97.8 F Pulse Rate [Left P ulse Oximeter] 86 84 Respiratory Rate 16 16 Blood Pressure [Le ft Arm] Blood Pressure [Ri ght Arm] 127/80 Pulse Oximetry 94 93 Oxygen Delivery Me thod Nasal Cannula Nasal Cannula Oxygen Flow Rate 1 1 07/23/22 07:00 07/23/22 07:00 07/23/22 09:15 Temperature 97.6 F Pulse Rate [Left P ulse Oximeter] 91 91 Respiratory Rate 20 18 18 Blood Pressure [Le ft Arm] 132/91 H Blood Pressure [Ri ght Arm] Pulse Oximetry 93 95 Oxygen Delivery Me thod Nasal Cannula Room Air Oxygen Flow Rate 1 07/23/22 11:00 07/23/22 15:00 Temperature 97.8 F Pulse Rate [Left P ulse Oximeter] 78 Respiratory Rate 18 Blood Pressure [Le ft Arm] Blood Pressure [Ri ght Arm] 149/87 H Pulse Oximetry 91 93 Oxygen Delivery Me thod Room Air Room Air Oxygen Flow Rate Documenting provider has reviewed patient's vital signs: yes Labs Labs: Laboratory Results - last 24 hr 07/23/22 06:52 Sodium 142 Potassium 2.7 L* Chloride 110 Carbon Dioxide 29 BUN 3 L Creatinine 0.3 L Estimated Creat Clear 34.91 Estimated GFR 111 Glucose 99 Calcium 7.7 L
--- NOTE | 2022-07-23 18:59 | PC.NURSE ---
End of Shift: Patient and cooperative. Afebrile. NG to LIS with yellow/green output. Denies nausea. No flatus. Dressing to abdomen removed by surgeon, steri-strips C/D/I. Up to bathroom and chair with SBA and gait belt. Walked in hallway x3 this shift. Pain up to 8/10 with coughing but denies at rest. Declined PRN pain medication. BP slightly elevated MD aware.
[2022-07-23] MEDS: ONDANSETRON 2 MG/ML inj 4 MG IVP (21:41)
[2022-07-24] VITALS (7 sets, daily range): BP systolic 129–152; BP diastolic 78–111; PULSE 67–87; RESP 18–20; TEMP 36.1–36.5; O2SAT 88–94
--- NOTE | 2022-07-24 04:57 | PC.NURSE ---
[id number]: Patient cooperative with cares. SBA to the BR. NG to LIS. Denies pain. Zofran x1 administered for intermittent nausea. Frequent trips to the BR and voiding large amounts of pale yellow urine. BS hypoactive. Denies passing gas. Tolerating small amounts of ice chips.
[2022-07-24 07:34] LABS: Chloride* 102 mmol/L (96-114); Sodium* 141 mmol/L (135-149)
[2022-07-24 07:37] LABS: Potassium* 3.4 mmol/L (3.6-5.1)
[2022-07-24 07:38] LABS: Calcium* 8.4 mg/dL (8.4-10.6); Carbon Dioxide* 36 mmol/L (20-32); Creatinine* 0.3 mg/dL (0.5-1.5); Est. Creatinine Clearance* 33.97; Estimated Glomerular Filt Rate 111 ml/min; Glucose* 111 mg/dL (60-115)
[2022-07-24 07:41] LABS: Blood Urea Nitrogen* < 2 mg/dL (7-30)
[2022-07-24] MEDS: FOLIC ACID 1 MG TABLET PO (08:44)
[2022-07-24] MEDS: SODIUM CHLORIDE 0.9 % (FLUSH) 10 ML SYRINGE 5 ML IVF (08:45)
[2022-07-24] MEDS: PANTOPRAZOLE SODIUM 40 MG INJ IVP (08:45)
[2022-07-24 09:50] LABS: Phosphorus* 2.5 mg/dL (2.5-4.5)
[2022-07-24] MEDS: POTASSIUM CHLORIDE 10 MEQ/100 ML PIGGYBACK 100 MEQ IVPB (09:58)
--- NOTE | 2022-07-24 11:19 | PM.IMPN1 ---
Progress Note: A&P Assessment and plan (1) S/P exploratory laparotomy: Problem details: Lysis of adhesions for bowel obstruction doing fairly well. Co manage with surgery Status: Acute (2) Complete obstruction of small intestine: Problem details: Status post lysis of adhesions Status: Acute (3) Hypokalemia: Problem details: Replace and follow Status: Acute (4) Alcohol abuse: Problem details: - with evidence of macrocytosis on labs - supplement B12/Folate - no history of withdrawal, per patient and . CIWA ordered Status: Acute (5) Hypertension: Problem details: Monitor and treat as needed. Status: Acute (6) Depression: Status: Acute (7) UTI (urinary tract infection): Problem details: - UCx growing Klebsiella; sensitive to rocephin; On IV Rocephin (07/18). completed antibiotic therapy Status: Acute Plan case discussed with surgery keep NG tube until passing gas Keep NPO today; tomorrow possibly consider TPN vs PPN unless her diet is advanced to Subjective Date Seen: 07/24/22 Interval history: patient npo discussed with RN estimated NG output about 700 over 24 hours intermittent nausea denies cp and sob minimal abdominal pain currently not passing gas Exam Narrative: Exam Narrative: Gen: no acute distress HEENT: NCAT EOMI mmm CV: RRR normal s1 s2 Lungs: CTAB Abd: soft, mild distention; hypoactive bowel sounds Neuro: Alert, oriented, CN grossly intact; nonfocal screening?exam Psych: appropriate affect MSK: age appropriate muscle mass Const: Vital Signs, click to edit/add: Vital Signs - 24 hr 07/23/22 15:00 07/23/22 15:00 07/23/22 15:00 Temperature 97.8 F Pulse Rate [Left P ulse Oximeter] 81 81 Respiratory Rate 18 20 Blood Pressure [Ri ght Arm] 153/96 H Pulse Oximetry 93 93 Oxygen Delivery Me thod Room Air Room Air Oxygen Flow Rate 07/23/22 19:35 07/23/22 23:51 07/23/22 23:00 Temperature 97.3 F L 97.5 F L Pulse Rate [Left P ulse Oximeter] 68 86 Respiratory Rate 20 20 20 Blood Pressure [Ri ght Arm] 165/89 H 154/97 H Pulse Oximetry 89 90 90 Oxygen Delivery Me thod Nasal Cannula Nasal Cannula Nasal Cannula Oxygen Flow Rate 1.0 1.0 1.0 07/24/22 03:30 Temperature 97.5 F L Pulse Rate [Left P ulse Oximeter] 67 Respiratory Rate 20 Blood Pressure [Ri ght Arm] 148/111 H Pulse Oximetry 88 Oxygen Delivery Me thod Nasal Cannula Oxygen Flow Rate 1.0 Labs Labs: Laboratory Results - last 24 hr 07/24/22 06:34 Sodium 141 Potassium 3.4 L Chloride 102 Carbon Dioxide 36 H BUN < 2 L Creatinine 0.3 L Estimated Creat Clear 33.97 Estimated GFR 111 Glucose 111 Calcium 8.4 Phosphorus 2.5
[2022-07-24] MEDS: 5 % DEXTROSE IN LAC RINGER'S 1,000 ML 75 ML IV (12:13)
[2022-07-24] MEDS: POTASSIUM CHLORIDE 10 MEQ/100 ML PIGGYBACK 50 MEQ IVPB ×3 (12:19→17:37)
--- NOTE | 2022-07-24 12:25 | PM.GSPN ---
Subjective Subjective Date Seen: 07/24/22 Interval history: Lianna is doing well. She denies abdominal pain. Not passing any gas. No nausea. She is anxious to get her NG tube out. Her biggest concern is the discomfort with potassium replacement. She has been up walking. Exam Narrative: Exam Narrative: General: Alert, oriented, no acute distress CV: Regular rate HEENT: NG in place. I believe she had 700 out in the last 24 hours. Abdomen: Distended but nontender. Incision with ecchymosis but no erythema. She does have quite active bowel sounds on auscultation. Const: Vital Signs, click to edit/add: Vital Signs - 24 hr 07/23/22 15:00 07/23/22 15:00 07/23/22 15:00 Temperature 97.8 F Pulse Rate [Left P ulse Oximeter] 81 81 Respiratory Rate 18 20 Blood Pressure [Ri ght Arm] 153/96 H Pulse Oximetry 93 93 Oxygen Delivery Me thod Room Air Room Air Oxygen Flow Rate 07/23/22 19:35 07/23/22 23:51 07/23/22 23:00 Temperature 97.3 F L 97.5 F L Pulse Rate [Left P ulse Oximeter] 68 86 Respiratory Rate 20 20 20 Blood Pressure [Ri ght Arm] 165/89 H 154/97 H Pulse Oximetry 89 90 90 Oxygen Delivery Me thod Nasal Cannula Nasal Cannula Nasal Cannula Oxygen Flow Rate 1.0 1.0 1.0 07/24/22 03:30 Temperature 97.5 F L Pulse Rate [Left P ulse Oximeter] 67 Respiratory Rate 20 Blood Pressure [Ri ght Arm] 148/111 H Pulse Oximetry 88 Oxygen Delivery Me thod Nasal Cannula Oxygen Flow Rate 1.0 Labs/Imaging Labs Labs: Potassium is still mildly low at 3.4. Progress Note: A&P Assessment and plan (1) S/P exploratory laparotomy: Problem details: Lysis of adhesions for bowel obstruction doing fairly well. Co manage with surgery Status: Acute (2) Hypokalemia: Problem details: Replace and follow Status: Acute (3) Complete obstruction of small intestine: Problem details: Status post lysis of adhesions Status: Acute Plan The patient is a 77-year-old female who is now postop day 3 status post ex lap and lysis of adhesions for small-bowel obstruction. She is progressing appropriately. She has been diuresing a significant amount. She is still somewhat distended and has not had return of bowel function. Because of how distended her bowels were I would like to keep her NG in place until she does have antegrade bowel function. -to avoid further potassium losses, okay to clamp NG. Instructions are given for what to do if the patient does start to pass flatus and or develops nausea. -no need for any antibiotics -continue NPO until passing flatus -potassium replacement per hospitalist. -okay for Lovenox. -encourage ambulation and IS
[2022-07-24] MEDS: ENOXAPARIN 40 MG/0.4 ML INJ SUBCUT (12:31)
--- NOTE | 2022-07-24 18:54 | PC.NURSE ---
Pt. alert and oriented, cooperative with cares.? SBA to the BR, uses a cane on right side to walk.? NG patent and draining this AM, NG clamped at 1700.?Pt. denies pain.? Zofran x1 administered for intermittent nausea.? Frequent trips to the BR and voiding 200cc's of pale yellow urine.? BS active in all four quadrants.? Denies passing gas.? Tolerating small amounts of ice chips, began passing gas this PM but pt. says she wants to keep NG clamped and in place until she passes a significant amt of gas. Does not want to pull out NG until she is certain she would not need to put it back on.
[2022-07-25 03:30] VITALS: BP 143/91; PULSE 82; RESP 20; TEMP 36.4; O2SAT 90
--- NOTE | 2022-07-25 05:35 | PC.NURSE ---
[id number]: Patient pleasant and cooperative. NG clamped. BS active. Passing gas (per patient). Educated patient on importance of movement and patient agreed to x1 walk in the [place]. Independent in room to BSC. Tolerates well. Midline incision C/D/I.
[2022-07-25] MEDS: 5 % DEXTROSE IN LAC RINGER'S 1,000 ML 75 ML IV ×2 (06:24→20:21)
[2022-07-25 07:00] VITALS: BP 134/94; PULSE 89; RESP 18; TEMP 36.6; O2SAT 89; O2SAT 95
[2022-07-25 07:01] LABS: Basophils Absolute Auto 0.01 K/uL (0.00-0.30); Basophils Percent Auto 0.2 % (0.0-3.0); Eosinophils Absolute Auto 0.09 K/uL (0.00-0.50); Eosinophils Percent Auto 1.4 % (0.0-7.0); Hematocrit 40.9 % (33.0-51.0); Hemoglobin* 13.7 gm/dL (12.0-16.0); Immature Granulocytes Abs Auto 0.01 K/uL (0.00-0.30); Immature Granulocytes Pct Auto 0.2 %; Lymphocytes Percent Auto 15.6 % (20-44); Mean Corpuscular HGB Conc 34 gm/dL (32-36); Mean Corpuscular Hemoglobin 34 pg (26-34); Mean Corpuscular Volume 103 fL (80-100); Neutrophils Absolute Auto 4.36 K/uL (1.7-7.0); Neutrophils Percent Auto 68.6 % (42.0-72.0); Platelet Count* 235 K/uL (140-440); RDW Coefficient of Variation % 11.8 % (11.5-15.5); Red Blood Count 3.99 m/uL (4.00-5.20); White Blood Count* 6.35 K/uL (4.50-11.00)
[2022-07-25 07:17] LABS: Chloride* 102 mmol/L (96-114); Slide Review Reflex No
[2022-07-25 07:18] LABS: Potassium* 3.2 mmol/L (3.6-5.1); Sodium* 142 mmol/L (135-149)
[2022-07-25 07:20] LABS: Creatinine* 0.3 mg/dL (0.5-1.5); Est. Creatinine Clearance* 32.54; Estimated Glomerular Filt Rate 111 ml/min
[2022-07-25 07:21] LABS: Calcium* 8.7 mg/dL (8.4-10.6); Carbon Dioxide* 33 mmol/L (20-32); Glucose* 127 mg/dL (60-115)
[2022-07-25 07:27] LABS: Blood Urea Nitrogen* < 2 mg/dL (7-30)
[2022-07-25] MEDS: PANTOPRAZOLE SODIUM 40 MG INJ IVP (08:18)
[2022-07-25] MEDS: SODIUM CHLORIDE 0.9 % (FLUSH) 10 ML SYRINGE 5 ML IVF ×2 (08:20→20:30)
[2022-07-25] MEDS: FOLIC ACID 1 MG TABLET PO (08:47)
--- NOTE | 2022-07-25 09:16 | P.GSPN_ITS ---
Subjective Subjective Date Seen: 07/25/22 Interval history: Lianna is doing well. She has been passing lots of gas. No nausea. No pain. Has been walking without difficulty. Exam Narrative: Exam Narrative: General: No acute distress CV: Regular rate Abdomen: incision clean, dry and intact without erythema. Abdomen is less distended and soft. Nontender. Const: Vital Signs, click to edit/add: Vital Signs - 24 hr 07/24/22 11:00 07/24/22 15:00 07/24/22 15:00 Temperature 97.6 F Pulse Rate [Left P ulse Oximeter] 87 81 Respiratory Rate 18 18 18 Blood Pressure [Ri ght Arm] 150/96 H Pulse Oximetry 94 93 Oxygen Delivery Me thod Room Air Room Air Oxygen Flow Rate 07/24/22 15:00 07/24/22 20:30 07/24/22 23:30 Temperature 97.0 F L 97.7 F 97.3 F L Pulse Rate [Left P ulse Oximeter] 81 86 75 Respiratory Rate 18 20 18 Blood Pressure [Ri ght Arm] 152/96 H 147/88 H 129/88 Pulse Oximetry 93 92 91 Oxygen Delivery Me thod Room Air Room Air Room Air Oxygen Flow Rate 1.0 07/24/22 23:00 07/25/22 03:30 07/25/22 07:00 Temperature 97.5 F L Pulse Rate [Left P ulse Oximeter] 82 89 Respiratory Rate 18 20 18 Blood Pressure [Ri ght Arm] 143/91 H Pulse Oximetry 91 90 Oxygen Delivery Me thod Room Air Room Air Oxygen Flow Rate 07/25/22 07:00 07/25/22 07:00 Temperature 97.8 F Pulse Rate [Left P ulse Oximeter] 89 Respiratory Rate 18 18 Blood Pressure [Ri ght Arm] 134/94 H Pulse Oximetry 95 89 Oxygen Delivery Me thod Room Air Room Air Oxygen Flow Rate Labs/Imaging Labs Labs: Patient remains hypokalemic at 3.2. Progress Note: A&P Assessment and plan (1) S/P exploratory laparotomy: Problem details: Lysis of adhesions for bowel obstruction doing fairly well. Co manage with surgery Status: Acute (2) Hypokalemia: Problem details: Replace and follow Status: Acute Plan The patient is a 77-year-old female who is status post exploratory laparotomy and lysis of an adhesion for small bowel obstruction. She is doing well today. She has been passing gas. No nausea. Abdomen is less distended. -NG was removed today. -full liquid diet ordered. Encouraged RN to give patient high-calorie foods, b ut go slow with p.o. until she is having a bowel movement. -okay for oral potassium -Lovenox for DVT prophylaxis
--- NOTE | 2022-07-25 09:59 | NUTR.NU ---
Nutrition Follow-up: Patient is status post day 4 of exploratory laparotomy for complete small bowel obstruction. Day 8 of NPO status. Per surgeon's report, patient to advance to full liquids today. Patient is at higher nutrition risk due to underweight BMI. RDN will order Ensure Clear/Ensure Enlive between meals TID as tolerated to help meet estimated energy needs. Ensure Clear/Ensure Enlive provides ~600-1050 kcals and ~21-60 grams protein. If patient does not tolerate full liquids or continue to advance diet, would recommend initiating PPN. RDN will continue to monitor and follow-up prn.
[2022-07-25] MEDS: POTASSIUM BICARB 25 MEQ EFFERVESCENT TAB 50 MEQ PO (10:06)
[2022-07-25 11:00] VITALS: BP 145/95; PULSE 88; RESP 18; TEMP 36.1; O2SAT 95
[2022-07-25] MEDS: ENOXAPARIN 40 MG/0.4 ML INJ SUBCUT (13:55)
[2022-07-25 14:44] VITALS: BP 98/72; PULSE 100; RESP 18; TEMP 36.4; O2SAT 92
--- NOTE | 2022-07-25 15:52 | P.IMPN_ITS ---
Progress Note: A&P Assessment and plan (1) S/P exploratory laparotomy: Problem details: Lysis of adhesions for bowel obstruction - doing fairly well. NG tube is out. Advancing diet without problems Status: Acute (2) Hypokalemia: Problem details: Replace and follow Status: Acute Plan Discharge to home tomorrow if tolerating diet well. Time Spent With Patient Total time spent: Total time spent today is 25 minutes, 15 minutes in coordination of care and discussing with patient and other providers ongoing evaluation management of bowel obstruction, nutrition and hypokalemia Subjective Date Seen: 07/25/22 Interval history: 77-year-old female seen in followup of small bowel obstruction with lysis of adhesions. Patient noted overnight she began to pass gas. She has not had a bowel movement overnight. Her NG tube was removed this morning and she was started on a diet. She has tolerated this very well without nausea or bloating. She reports no breathing problems. She reports she has been ambulating without difficulties. Exam Narrative: Exam Narrative: She is alert and in no distress. Mood and affect are bright. Respirations are clear to auscultation. Cardiovascular: S1, S2, regular rate and rhythm. Abdomen is soft without tenderness or mass. Bowel sounds are present. Extremities without edema. Const: Vital Signs, click to edit/add: Vital Signs - 24 hr 07/24/22 20:30 07/24/22 23:30 07/24/22 23:00 Temperature 97.7 F 97.3 F L Pulse Rate [Left P ulse Oximeter] 86 75 Respiratory Rate 20 18 18 Blood Pressure [Ri ght Arm] 147/88 H 129/88 Pulse Oximetry 92 91 91 Oxygen Delivery Me thod Room Air Room Air Room Air 07/25/22 03:30 07/25/22 07:00 07/25/22 07:00 Temperature 97.5 F L Pulse Rate [Left P ulse Oximeter] 82 89 Respiratory Rate 20 18 18 Blood Pressure [Ri ght Arm] 143/91 H Pulse Oximetry 90 95 Oxygen Delivery Me thod Room Air Room Air 07/25/22 07:00 07/25/22 11:00 07/25/22 14:44 Temperature 97.8 F 97.0 F L Pulse Rate [Left P ulse Oximeter] 89 88 100 Respiratory Rate 18 18 18 Blood Pressure [Ri ght Arm] 134/94 H 145/95 H Pulse Oximetry 89 95 Oxygen Delivery Me thod Room Air Room Air 07/25/22 14:44 07/25/22 14:44 Temperature 97.6 F Pulse Rate [Left P ulse Oximeter] 100 Respiratory Rate 18 18 Blood Pressure [Ri ght Arm] 98/72 Pulse Oximetry 92 92 Oxygen Delivery Me thod Room Air Room Air Documenting provider has reviewed patient's vital signs: yes Labs Labs: Laboratory Results - last 24 hr 07/25/22 07/25/22 06:44 06:44 WBC 6.35 RBC 3.99 L Hgb 13.7 Hct 40.9 MCV 103 H MCH 34 MCHC 34 RDW Coeff of Ramon 11.8 Plt Count 235 Neut % (Auto) 68.6 Lymph % (Auto) 15.6 L [place] % (Auto) 14.0 H Eos % (Auto) 1.4 Baso % (Auto) 0.2 Neut # (Auto) 4.36 Lymph # (Auto) 1.00 [place] # (Auto) 0.90 Eos # (Auto) 0.09 Baso # (Auto) 0.01 Sodium 142 Potassium 3.2 L Chloride 102 Carbon Dioxide 33 H BUN < 2 L Creatinine 0.3 L Estimated Creat Clear 32.54 Estimated GFR 111 Glucose 127 H Calcium 8.7
--- NOTE | 2022-07-25 18:29 | PC.NURSE ---
Patient pleasant and cooperative. NG tube removed at 0900. BS active. Pt. Passing gas (per patient). Educated patient on walking in the halls to get things moving, still no BM today. Independent in room to BSC and BR.? Tolerates well.? Midline incision C/D/I. Pt. tolerating full liquid diet, denies pain, N/V. Non productive cough intermittently. Pt. tried Chocolate ensure mixed with vanilla ice cream and tolerated well even though pt. does not like the after taste of ensure. IV patent, fluids running at 75mls/hr.
[2022-07-25 19:16] VITALS: BP 115/87; PULSE 98; RESP 18; TEMP 36.5; O2SAT 93
[2022-07-25] MEDS: lisinopriL 5 MG TABLET PO (20:30)
[2022-07-25] MEDS: ATORVASTATIN 10 MG TABLET PO (20:30)
[2022-07-25 23:04] VITALS: BP 122/75; PULSE 90; RESP 16; TEMP 35.9; O2SAT 91
[2022-07-26 03:01] VITALS: BP 131/70; PULSE 86; RESP 18; TEMP 36.6; O2SAT 95
--- NOTE | 2022-07-26 04:52 | PC.NURSE ---
pt is alert and oriented, denies pain or discomfort. Compliant with full liquid diet. No Bm even though having several urges to go. Up to the bathroom refusing to use the cane or for staff to use the gait belt. BSC was provided for safety. Incision on abdomen is CDI. LR running at 75.
[2022-07-26 07:00] VITALS: BP 147/89; PULSE 89; RESP 20; TEMP 36.9; O2SAT 95
[2022-07-26 07:05] LABS: Chloride* 106 mmol/L (96-114); Sodium* 140 mmol/L (135-149)
[2022-07-26 07:08] LABS: Carbon Dioxide* 32 mmol/L (20-32); Creatinine* 0.3 mg/dL (0.5-1.5); Est. Creatinine Clearance* 32.96; Estimated Glomerular Filt Rate 111 ml/min
[2022-07-26 07:09] LABS: Calcium* 8.6 mg/dL (8.4-10.6); Glucose* 137 mg/dL (60-115)
[2022-07-26 07:21] LABS: Blood Urea Nitrogen* < 2 mg/dL (7-30)
[2022-07-26 07:53] LABS: Magnesium* 1.6 mg/dL (1.5-2.6)
[2022-07-26] MEDS: POTASSIUM BICARB 25 MEQ EFFERVESCENT TAB 50 MEQ PO ×2 (08:45→10:03)
[2022-07-26] MEDS: CYANOCOBALAMIN (VITAMIN B-12) 500 MCG TABLET 1000 MCG PO (08:45)
[2022-07-26] MEDS: FOLIC ACID 1 MG TABLET PO (08:46)
[2022-07-26] MEDS: SODIUM CHLORIDE 0.9 % (FLUSH) 10 ML SYRINGE 5 ML IVF (08:46)
[2022-07-26] MEDS: ESCITALOPRAM 10 MG TABLET 5 MG PO (08:46)
[2022-07-26] MEDS: polyethylene glycoL 3350 17 GM PACK PO (10:03)
--- NOTE | 2022-07-26 10:42 | P.DS_ITS ---
DS: Providers Provider Date Seen: 07/26/22 Date of admission: 07/18/22 20:24 Primary care physician: Not a Local Provider Admitting Clinician: Joss Avalos MD Attending Physician on discharge: Juan Luis Diaz MD Date of Discharge: 07/26/22 DS: Diagnosis Discharge Diagnosis (1) Complete obstruction of small intestine: Status: Acute Problem details: Admitted July 2022 with abdominal pain. Evaluation showed she had a small bowel obstruction. Underwent laparotomy with lysis of adhesions. Postoperatively had ileus which is now resolved (2) S/P exploratory laparotomy: Status: Acute Problem details: Lysis of adhesions for bowel obstruction. Postop ileus is resolved (3) Hypokalemia: Status: Acute Problem details: Continues to have low potassium. Continue replacement and outpatient followup (4) Fall: Status: Acute Problem details: Prior to admission patient is had couple falls with head injury. No seizures sequelae. (5) Alcohol abuse: Status: Acute Problem details: Patient reports drinking 8-10 glasses of wine per day. - with evidence of macrocytosis on labs - supplement B12/Folate - no problems with alcohol withdrawal. - recommend moderation/harm reduction (6) Tobacco abuse disorder: Status: Acute Problem details: - on nicotine patch (7) UTI (urinary tract infection): Status: Acute Problem details: Patient had positive urine culture with Klebsiella. Treated with 5 days of IV antibiotics. Never clearly had symptoms specific for UTI. DS: Summary Hospital Course Hospital Course: 77-year-old female admitted to the hospital with abdominal pain. Evaluation showed this is due to a small bowel obstruction. Problems did not resolve so patient was taken to the OR by Dr. Sutton and underwent laparotomy with lysis of adhesions. Postoperatively she has had a postoperative ileus which has been slow to resolve. She has not had her NG tube out for a day and eating a full liquid diet without difficulties. She has also had some problems with hypokalemia during her hospital stay. Aggressive replacement has been instituted. Will need outpatient follow-up of her potassium. Status at Discharge Cognitive/behavioral status at discharge: Baseline Functional status at discharge: independent ambulation Overall status at discharge: patient is back to baseline Time Spent with Patient Time attestation: Total time spent providing and/or coordinating discharge services: Time spent: Greater than 30 minutes Exam Narrative: Exam Narrative: She is alert and appears in no distress. Mood and affect are bright. Speech is normal. Respirations are clear to auscultation. Breathing is unlabored. Cardiovascular: S1, S2, regular rate and rhythm. Abdomen is soft with minimal tenderness. No significant edema Const: Vital Signs, click to edit/add: Vital Signs - 24 hr 07/25/22 11:00 07/25/22 14:44 07/25/22 14:44 Temperature 97.0 F L Pulse Rate [Left P ulse Oximeter] 88 100 Respiratory Rate 18 18 18 Blood Pressure [Ri ght Arm] 145/95 H Pulse Oximetry 95 92 Oxygen Delivery Me thod Room Air Room Air 07/25/22 14:44 07/25/22 19:16 07/25/22 23:04 Temperature 97.6 F 97.7 F Pulse Rate [Left P ulse Oximeter] 100 98 Respiratory Rate 18 18 Blood Pressure [Ri ght Arm] 98/72 115/87 Pulse Oximetry 92 93 91 Oxygen Delivery Me thod Room Air Room Air Room Air 07/25/22 23:04 07/26/22 03:01 07/26/22 07:00 Temperature 96.7 F L 97.9 F Pulse Rate [Left P ulse Oximeter] 90 86 Respiratory Rate 16 18 Blood Pressure [Ri ght Arm] 122/75 131/70 Pulse Oximetry 91 95 95 Oxygen Delivery Me thod Room Air Room Air Room Air 07/26/22 07:00 07/26/22 07:00 Temperature 98.4 F Pulse Rate [Left P ulse Oximeter] 89 89 Respiratory Rate 20 Blood Pressure [Ri ght Arm] 147/89 H Pulse Oximetry 95 Oxygen Delivery Me thod Room Air Documenting provider has reviewed patient's vital signs: yes DS: Data Data Completed and Pending Labs on day of discharge: Labs from last 24 hours 07/26/22 06:06 Sodium 140 Potassium 3.0 L Chloride 106 Carbon Dioxide 32 BUN < 2 L Creatinine 0.3 L Estimated Creat Clear 32.96 Estimated GFR 111 Glucose 137 H Calcium 8.6 Magnesium 1.6 Discharge Plan Discharge Disposition: Home, Self-Care Date of Admission: 07/18/22 20:24 Attending Provider on Discharge: Tyler Diaz Primary Care Provider: Provider,Not a Local Condition: Improved Anticipated Discharge Date/Time: 07/26/22 10:00 Discharge Medications: New potassium chloride 10 mEq capsule, extended release 10 meq PO DAILY Qty: 30 2RF Continued albuterol sulfate 90 mcg/actuation HFA aerosol inhaler 2 inh INHALATION Q4H PRN alendronate 70 mg tablet 70 mg PO Q7D Label Comments: TAKE 1 TAB BY MOUTH 1X/WEEK IN MORNING ON EMPTY STOMACH W/ FULL GLASS WATER. DONT LIE DOWN X1 HR ascorbic acid (vitamin C) [Vitamin C] 1,000 mg tablet 1 g PO DAILY atorvastatin 10 mg tablet 10 mg PO HS cyanocobalamin (vitamin B-12) [Vitamin B-12] 1,000 mcg tablet 1,000 mcg PO DAILY escitalopram oxalate 5 mg tablet 5 mg PO DAILY folic acid 1 mg tablet 1 mg PO DAILY lisinopril 5 mg tablet 5 mg PO HS Discharge Orders: Discharge Order (Routine); Ordered 07/26/22 Ordered By: Tyler Diaz Patient Education: Surgical Site Infections (GEN) Activity Level: No strenuous activity Activity Detail: No lifting more than 20 lb for 4 weeks. Discharge Diet: Regular Follow Up Appointments: Nolvia Sutton MD [Staff Physician] - Provider,Not a Local [Primary Care Provider] - (Follow-up with primary care provider in 1 week. Check blood test, serum potassium at that time.) Forms: [employer] Info Instructions Discharge Comments: Follow-up with primary care provider in 1 week with recheck of serum potassium at that time
[2022-07-26] MEDS: ENOXAPARIN 40 MG/0.4 ML INJ SUBCUT (12:38)
--- NOTE | 2022-07-26 12:50 | PM.GSPN ---
Subjective Subjective Date Seen: 07/26/22 Interval history: Lianna is doing well. She had a large bowel movement. She is hungry and tolerated eggs for breakfast. Minimal abdominal pain. She is anxious to discharge home. Exam Narrative: Exam Narrative: General: No acute distress abdomen: Incision is clean and dry without erythema. Some ecchymosis noted. Abdomen is nontender. Very mildly distended. Const: Vital Signs, click to edit/add: Vital Signs - 24 hr 07/25/22 14:44 07/25/22 14:44 07/25/22 14:44 Temperature 97.6 F Pulse Rate [Left P ulse Oximeter] 100 100 Respiratory Rate 18 18 18 Blood Pressure [Ri ght Arm] 98/72 Pulse Oximetry 92 92 Oxygen Delivery Me thod Room Air Room Air 07/25/22 19:16 07/25/22 23:04 07/25/22 23:04 Temperature 97.7 F 96.7 F L Pulse Rate [Left P ulse Oximeter] 98 90 Respiratory Rate 18 16 Blood Pressure [Ri ght Arm] 115/87 122/75 Pulse Oximetry 93 91 91 Oxygen Delivery Me thod Room Air Room Air Room Air 07/26/22 03:01 07/26/22 07:00 07/26/22 07:00 Temperature 97.9 F 98.4 F Pulse Rate [Left P ulse Oximeter] 86 89 Respiratory Rate 18 20 Blood Pressure [Ri ght Arm] 131/70 147/89 H Pulse Oximetry 95 95 95 Oxygen Delivery Me thod Room Air Room Air Room Air 07/26/22 07:00 Temperature Pulse Rate [Left P ulse Oximeter] 89 Respiratory Rate Blood Pressure [Ri ght Arm] Pulse Oximetry Oxygen Delivery Me thod Progress Note: A&P Assessment and plan (1) S/P exploratory laparotomy: Problem details: Lysis of adhesions for bowel obstruction. Postop ileus is resolved Status: Acute (2) Hypokalemia: Problem details: Continues to have low potassium. Continue replacement and outpatient followup Status: Acute Plan the patient is a 77-year-old female who is postop day 5 from ex lap and lysis of adhesions for small-bowel obstruction. She is doing wonderfully. She has had return of bowel function and is tolerating a diet. She will be able to discharge home later today pending her to p.m. potassium check. I did stress that she needs short-term follow-up with her primary care doctor to recheck her potassium. She will follow up with me in 1-2 weeks.
--- NOTE | 2022-07-26 13:48 | PC.NURSE ---
End of Shift Note: Patient has been up and about in her room. She has had two bowel movements today. She declined ordering a lunch tray stating she wasn't hungry. Did eat about 50% of breakfast. Awaiting her afternoon lab draw to see what her potassium level is. Will continue to monitor.
[2022-07-26 14:38] LABS: Potassium* 4.8 mmol/L (3.6-5.1)
--- NOTE | 2022-07-26 17:27 | PC.NURSE ---
Discharge instructions given to patient and her . All questions were answered and concerns were addressed. Patient instructed to follow up with her primary care provider in 1 week and schedule a lab appointment to check her potassium. All belongings were sent. All forms were signed. Pt escorted to the front entrance via wheelchair and nursing staff.
== END 2022-07-26 16:25 | disposition home or self-care (01) | DRG 336 ==
LOC: ED 19:37 → MEDSURG 20:02
PROVIDERS: Family Medicine; Surgery; Admitting Provider Hospitalist; Emergency Provider Family Medicine; Visit Provider Hospitalist
PROC: 0DN80ZZ Release Small Intestine, Open Approach (ICD-10-PCS; CPT 49000; principal; 2022-07-21 11:15)
DX: K56.52 Intestinal adhesions [bands] with complete obstruction (principal); Z68.1 Body mass index [BMI] 19.9 or less, adult; B96.1 Klebsiella pneumoniae [K. pneumoniae] as the cause of diseases classified elsewhere; F10.10 Alcohol abuse, uncomplicated; E87.6 Hypokalemia; I95.9 Hypotension, unspecified; I10 Essential (primary) hypertension; R42 Dizziness and giddiness; Z91.81 History of falling; Z90.710 Acquired absence of both cervix and uterus; D75.89 Other specified diseases of blood and blood-forming organs; F17.210 Nicotine dependence, cigarettes, uncomplicated; E78.5 Hyperlipidemia, unspecified
CPT/HCPCS: 00790; 00840; 36415; 51798; 64488; 70450; 74018; 74177; 76942; 80048; 80076; 81001; 81003; 82077; 82150; 83605; 83690; 83735; 84100; 84132; 84484; 85018; 85025; 86140; 87086; 87186; 87502; 87634; 87635; 93005; 97110; 97112; 97116; 97161; 97165; 97530; 97535; 99100; 99140; 99285; A9270; C9113; C9290; J0330; J0696; J0780; J1100; J1170; J1650; J2270; J2405; J2543; J2704; J2710; J3010; J3480; J3490; J7030; J7042; J7120; P9047; Q9967